=== PATIENT | male | born 1960 | race Caucasian/White ===

== ENCOUNTER → 2016-12-07 | Outpatient (CLI) | payer OTHER ==
[~2016-12-07] MED LIST: ARIP2 PO; EFFE37.5 PO; FOLI1 PO; PROBCAP4 PO; PROT40TA PO; SIMV10 PO; THIA100T PO
[2016-12-07 13:06] LABS: AUTOMATED NEUTROPHIL # 2.5 TH/MM3 (1.8-7.7); BASOPHIL # 0.1 TH/MM3 (0-0.2); BASOPHIL % 1.3 % (0.0-2.0); EOSINOPHIL # 0.2 TH/MM3 (0-0.4); EOSINOPHIL % 4.6 % (0.0-4.0); HEMATOCRIT 44.4 % (39.0-51.0); HEMO FLAGS DIFF FINAL; LYMPH % 31.9 % (9.0-44.0); LYMPHOCYTE # 1.7 TH/MM3 (1.0-4.8); MEAN CORPUSCULAR HEMOGLOBIN 32.7 PG (27.0-34.0); MEAN CORPUSCULAR HGB CONC 34.5 % (32.0-36.0); NEUT % 48.2 % (16.0-70.0); PLATELET COUNT 224 TH/MM3 (150-450); RED BLOOD COUNT 4.68 MIL/MM3 (4.50-5.90); RED CELL DISTRIBUTION WIDTH 13.7 % (11.6-17.2); WHITE BLOOD COUNT 5.3 TH/MM3 (4.0-11.0)
[2016-12-07 13:48] LABS: ALKALINE PHOSPHATASE 93 U/L (45-117); ALT (GPT) 63 U/L (12-78); ANION GAP 6 MEQ/L (5-15); AST (GOT) 75 U/L (15-37); BICARBONATE 29.5 MEQ/L (21.0-32.0); BLOOD UREA NITROGEN 15 MG/DL (7-18); CHLORIDE 105 MEQ/L (98-107); GLOMERULAR FILTRATION RATE 77 ML/MIN (>89); GLUCOSE,FASTING 87 MG/DL (74-99); POTASSIUM 4.8 MEQ/L (3.5-5.1); SODIUM (NA) 140 MEQ/L (136-145); THYROXINE (T4) 6.2 MCG/DL (4.5-12.1); TOTAL BILIRUBIN ADULT 0.4 MG/DL (0.2-1.0)
== END ==
LOC: PLAB 08:16
PROVIDERS: ATTEND Family Medicine
DX: I10 Essential (primary) hypertension (principal); E03.8 Other specified hypothyroidism; Z79.899 Other long term (current) drug therapy
CPT/HCPCS: 80053; 84436; 84443; 84480; 85025

== ENCOUNTER → 2017-04-09 | Outpatient (CLI) | payer OTHER ==
[2017-04-09 09:07] LABS: AUTOMATED NEUTROPHIL # 2.7 TH/MM3 (1.8-7.7); BASOPHIL # 0.1 TH/MM3 (0-0.2); BASOPHIL % 0.9 % (0.0-2.0); EOSINOPHIL # 0.3 TH/MM3 (0-0.4); HEMO FLAGS DIFF FINAL; LYMPH % 40.4 % (9.0-44.0); LYMPHOCYTE # 2.6 TH/MM3 (1.0-4.8); MEAN CELL VOLUME 96.3 FL (80.0-100.0); MEAN CORPUSCULAR HEMOGLOBIN 33.7 PG (27.0-34.0); MONO % 11.8 % (0.0-8.0); NEUT % 42.9 % (16.0-70.0); PLATELET COUNT 246 TH/MM3 (150-450); RED BLOOD COUNT 4.37 MIL/MM3 (4.50-5.90); WHITE BLOOD COUNT 6.3 TH/MM3 (4.0-11.0)
[2017-04-09 09:39] LABS: ANION GAP 7 MEQ/L (5-15); BICARBONATE 26.7 MEQ/L (21.0-32.0); BLOOD UREA NITROGEN 21 MG/DL (7-18); CHLORIDE 103 MEQ/L (98-107); GLOMERULAR FILTRATION RATE 52 ML/MIN (>89); GLUCOSE,FASTING 107 MG/DL (74-99); POTASSIUM 4.2 MEQ/L (3.5-5.1); SODIUM (NA) 137 MEQ/L (136-145)
[2017-04-09 09:41] LABS: ALT (GPT) 26 U/L (12-78); AST (GOT) 30 U/L (15-37)
[2017-04-09 09:43] LABS: ALKALINE PHOSPHATASE 71 U/L (45-117); HDL CHOLESTEROL 64.8 MG/DL (40.0-60.0); TOTAL BILIRUBIN ADULT 0.6 MG/DL (0.2-1.0)
[2017-04-09 09:44] LABS: LDL CHOLESTEROL 132 MG/DL (0-99)
[2017-04-09 12:52] LABS: HEMOGLOBIN A1a 1.3 %; HEMOGLOBIN A1b 0.8 %; HEMOGLOBIN Ao 84.2 %; HEMOGLOBIN F 1.2 %; HEMOGLOBIN LA1C 2.3 %
== END ==
LOC: PLAB 07:12
PROVIDERS: ATTEND Family Medicine
DX: I10 Essential (primary) hypertension (principal); E10.8 Type 1 diabetes mellitus with unspecified complications; E78.2 Mixed hyperlipidemia; Z79.899 Other long term (current) drug therapy
CPT/HCPCS: 80053; 80061; 83036; 85025

== ENCOUNTER 2017-06-05 13:34 | Observation (INO) | payer OTHER ==
[~2017-06-05] VITALS: Ht 182.9 cm; Wt 74.2 kg
[2017-06-05 13:37] VITALS: BP 110/58; PULSE 127; RESP 16; TEMP 98.5; O2SAT 95
[2017-06-05] MEDS ORDERED: SIMV20TA PO (13:58)
[2017-06-05] MEDS ORDERED: LISI-515 PO (13:58)
[2017-06-05] MEDS ORDERED: OMEP20TA PO (13:58)
[2017-06-05] MEDS ORDERED: methylPREDNISolone SOD SUCC 125 MG/2 ML VIAL IV PUSH ONE (14:00)
[2017-06-05] MEDS ORDERED: SODIUM CHLORIDE 0.9% FLUSH 10 ML FLUSH IVF PRN (14:00)
[2017-06-05] MEDS ORDERED: RESP: ALBUTEROL 2.5 MG/IPRATROPIUM 0.5 MG NEB (SCH) NEB ONE (14:00)
--- NOTE | 2017-06-05 14:16 | PD ---
HPI Chief Complaint: Cold / Flu Symptoms Time Seen by Provider: 13:48 Travel History International Travel<30 days: No Contact w/Intl Traveler<30days: No Traveled to known affect area: No History of Present Illness HPI 57-year-old male presents to the emergency room for evaluation of cold and flu symptoms for the past 10 days. Patient states it started off as upper respiratory infection with sore throat, congestion, earache, and slight cough. The upper respiratory symptoms have subsided but he has a persistent, mildly productive cough. Patient reports associated shortness of breath, like he can' t get enough breath in. He has some chest tightness on the right side. He has been taking [id number] Mucinex, DayQuil, and an old prescription for cough syrup with codeine. Patient also reports that he took 4 days worth of a leftover, unknown antibiotic; he believes it may have been erythromycin. He reports feeling chilled and sweaty with past few days but has not actually taken his temperature. Patient denies any cardiac or lung disease. States he may have COPD but has never been formally diagnosed. He smokes 1 pack cigarettes per day. Denies recent immobilization, prolonged travel, unilateral leg swelling, history of cancer, or history of blood clot. Patient has history of hypertension and hyperlipidemia. PFSH Past Medical History Hx Anticoagulant Therapy: Yes (81 MG. ASA) Arthritis: Yes Asthma: No Anxiety: Yes Depression: Yes Heart Rhythm Problems: No Cancer: No Cardiovascular Problems: Yes (CHOL, HTN) High Cholesterol: Yes Chest Pain: No Congestive Heart Failure: No COPD: No Cerebrovascular Accident: No Diabetes: No (states no) Diminished Hearing: No Endocrine: No Gastrointestinal Disorders: Yes GERD: Yes Genitourinary: No Headaches: No Hepatitis: No Hiatal Hernia: No Hypertension: Yes Immune Disorder: No Kidney Stones: No Musculoskeletal: Yes Neurologic: No Psychiatric: Yes Reproductive: No Respiratory: No Immunizations Current: Yes Migraines: No Myocardial Infarction: No Renal Failure: No Seizures: No Sleep Apnea: No Ulcer: No Past Surgical History Abdominal Surgery: Yes (HERNIA REPAIR CHILD) Appendectomy: No Cardiac Surgery: No Cholecystectomy: No Ear Surgery: No Endocrine Surgery: No Eye Surgery: No Genitourinary Surgery: No Gynecologic Surgery: No Insulin Pump: No Joint Replacement: No Oral Surgery: No Pacemaker: No Thoracic Surgery: No Other Surgery: Yes (right inguinal hernia) Social History Alcohol Use: Yes (COUPLE BEERS/BOTTLE OF WINE DAILY. IN REHAB NOW) Tobacco Use: Yes (1.5 PPD) Substance Use: No Allergies-Medications (Allergen,Severity, Reaction): Coded Allergies: No Known Allergies (Verified , 06/05/17) Reported Meds & Prescriptions Reported Meds & Active Scripts Active Reported Omeprazole 20 Mg Tab 20 Mg PO DAILY Lisinopril 20 Mg Tab 20 Mg PO DAILY Simvastatin 20 Mg Tab 30 Mg PO DAILY Review of Systems Except as stated in HPI: all other systems reviewed are Neg Physical Exam Narrative GENERAL: Well developed, well-nourished male in no acute distress. Afebrile. Ambulatory. Resting comfortably in bed. SKIN: Focused skin assessment warm/dry. HEAD: Atraumatic. Normocephalic. EYES: Pupils equal and round. No scleral icterus. No injection or drainage. ENT: No nasal bleeding or discharge. Mucous membranes pink and moist. EARS: Bilateral pinnae and external canals appear within normal limits. Bilateral tympanic membranes without erythema, dullness or perforation. NECK: Trachea midline. No JVD. CARDIOVASCULAR: Tachycardic. Regular rhythm. No murmur appreciated. RESPIRATORY: No accessory muscle use. Breath sounds equal bilaterally. No crackles, rales, wheezes, or rhonchi. Diminished lung sounds bilaterally. NEUROLOGICAL: Awake and alert. No obvious cranial nerve deficits. Motor grossly within normal limits. Normal speech. PSYCHIATRIC: Appropriate mood and affect; insight and judgment normal. Data Data Last Documented VS Vital Signs Date Time Temp Pulse Resp B/P (MAP) Pulse Ox O2 Delivery O2 Flow Rate FiO2 06/05/17 14:50 116 20 98/79 (85) 97 06/05/17 13:37 98.5 Orders Orders Complete Blood Count With Diff (06/05/17 13:57) Comprehensive Metabolic Panel (06/05/17 13:57) Ecg Monitoring (06/05/17 13:57) Iv Access Insert/Monitor (06/05/17 13:57) Oximetry (06/05/17 13:57) Sodium Chloride 0.9% Flush (Ns Flush) (06/05/17 14:00) Albuterol-Ipratropium Neb (Duoneb Neb) (06/05/17 14:00) Methylprednisolone So Succ Inj (Solumedr (06/05/17 14:00) Prothrombin Time / Inr (Pt) (06/05/17 14:20) Act Partial Throm Time (Ptt) (06/05/17 14:20) Sodium Chlor 0.9% 1000 Ml Inj (Ns 1000 M (06/05/17 14:20) Chest, Single Ap (06/05/17 14:20) Influenzae A/B Antigen (06/05/17 14:20) Troponin I (06/05/17 13:57) Electrocardiogram (06/05/17 14:35) B-Type Natriuretic Peptide (06/05/17 14:35) Act Partial Throm Time (Ptt) (06/05/17 14:35) Ckmb (Isoenzyme) Profile (06/05/17 14:36) Troponin I (06/05/17 14:36) Sodium Chlor 0.9% 1000 Ml Inj (Ns 1000 M (06/05/17 14:45) D-Dimer (06/05/17 15:04) Ct Thorax/ Chest Wo Iv Contras (06/05/17 ) CKMB (06/05/17 14:45) CKMB% (06/05/17 14:45) Ventilation & Perfusion Scan (06/05/17 ) Aspirin (Aspirin) (06/05/17 16:00) Admit Order (Ed Use Only) (06/05/17 15:58) Labs Laboratory Tests Test 06/05/17 14:25 06/05/17 14:45 White Blood Count 11.3 TH/MM3 Red Blood Count 5.14 MIL/MM3 Hemoglobin 16.3 GM/DL Hematocrit 48.8 % Mean Corpuscular Volume 95.0 FL Mean Corpuscular Hemoglobin 31.8 PG Mean Corpuscular Hemoglobin Concent 33.5 % Red Cell Distribution Width 11.9 % Platelet Count 299 TH/MM3 Mean Platelet Volume 7.8 FL Neutrophils (%) (Auto) 71.8 % Lymphocytes (%) (Auto) 15.9 % Monocytes (%) (Auto) 10.6 % Eosinophils (%) (Auto) 1.0 % Basophils (%) (Auto) 0.7 % Neutrophils # (Auto) 8.1 TH/MM3 Lymphocytes # (Auto) 1.8 TH/MM3 Monocytes # (Auto) 1.2 TH/MM3 Eosinophils # (Auto) 0.1 TH/MM3 Basophils # (Auto) 0.1 TH/MM3 CBC Comment DIFF FINAL Differential Comment Prothrombin Time 10.8 SEC Prothromb Time International Ratio 1.0 RATIO Activated Partial Thromboplast Time 24.7 SEC 24.2 SEC D-Dimer Quantitative (PE/DVT) 0.62 MG/L FEU Blood Urea Nitrogen 25 MG/DL Creatinine 2.40 MG/DL Random Glucose 116 MG/DL Total Protein 9.1 GM/DL Albumin 3.8 GM/DL Calcium Level 10.6 MG/DL Alkaline Phosphatase 85 U/L Aspartate Amino Transf (AST/SGOT) 34 U/L Alanine Aminotransferase (ALT/SGPT) 37 U/L Total Bilirubin 0.8 MG/DL Sodium Level 133 MEQ/L Potassium Level 4.1 MEQ/L Chloride Level 98 MEQ/L Carbon Dioxide Level 26.4 MEQ/L Anion Gap 9 MEQ/L Estimat Glomerular Filtration Rate 28 ML/MIN Troponin I LESS THAN 0.02 NG/ML LESS THAN 0.02 NG/ML Total Creatine Kinase 106 U/L Creatine Kinase MB 0.6 NG/ML B-Type Natriuretic Peptide 5 PG/ML MDM Medical Decision Making Medical Screen Exam Complete: Yes Emergency Medical Condition: Yes Medical Record Reviewed: Yes Differential Diagnosis Pneumonia, bronchitis, COPD exacerbation, chest pain, PE Narrative Course 57-year-old male presents to the emergency room for evaluation of flulike symptoms for the past 10 days. Patient states symptoms started off as upper respiratory nature and those have subsided but the mildly productive cough has persisted. He has associated shortness of breath, like he can't get enough air in, and right-sided chest tightness. Reports subjective fevers. Patient placed on cardiac telemetry, IV access established, and basic labs obtained. He was given 325 mg aspirin. Physical exam is reassuring. Patient is resting comfortably with no increased work of breathing. Lungs sounds clear but diminished bilaterally. Patient is persistently tachycardic in the 120s and oxygen saturation was initially 92% on room air. After 3 DuoNebs and 125 mg Solu-Medrol, patient's oxygen saturation is 100% on room air. Despite 2 L of fluid, patient is persistently tachycardic. EKG shows sinus tachycardia nonspecific ST changes. Troponin and CK-MB are negative. BNP is 5. Rapid influenza is negative. CBC shows leukocytosis of 11.3. CMP shows evidence of prerenal azotemia with elevated BUN and creatinine. CTA was initially ordered given patient's vital signs but after resulting creatinine, it could not be performed so a d-dimer was added. D-dimer is elevated. VQ scan ordered and pending. My attending physician, Dr. Reyes, who recommends admission for dehydration. I spoke to Dr. Raines, who agrees to accept this patient to her service. Physician Communication Physician Communication I spoke to Dr. Raines who agrees to admit this patient to her service. Diagnosis Primary Impression: Renal insufficiency Additional Impression: Tachycardia Admitting Information Admitting Physician Requests: Observation Condition: Stable Radha Maradiaga Jun 05, 2017 14:16
[2017-06-05] MEDS ORDERED: SODIUM CHLOR 0.9% 1000 ML INJ 1,000 ML IV SCH (14:20)
--- NOTE | 2017-06-05 14:36 | PD ---
Physical Exam Date Seen by Provider: Jun 05, 2017 Data Data Last Documented VS Vital Signs Date Time Temp Pulse Resp B/P (MAP) Pulse Ox O2 Delivery O2 Flow Rate FiO2 06/05/17 14:50 116 20 98/79 (85) 97 06/05/17 13:37 98.5 Orders Orders Complete Blood Count With Diff (06/05/17 13:57) Comprehensive Metabolic Panel (06/05/17 13:57) Ecg Monitoring (06/05/17 13:57) Iv Access Insert/Monitor (06/05/17 13:57) Oximetry (06/05/17 13:57) Sodium Chloride 0.9% Flush (Ns Flush) (06/05/17 14:00) Albuterol-Ipratropium Neb (Duoneb Neb) (06/05/17 14:00) Methylprednisolone So Succ Inj (Solumedr (06/05/17 14:00) Prothrombin Time / Inr (Pt) (06/05/17 14:20) Act Partial Throm Time (Ptt) (06/05/17 14:20) Sodium Chlor 0.9% 1000 Ml Inj (Ns 1000 M (06/05/17 14:20) Chest, Single Ap (06/05/17 14:20) Influenzae A/B Antigen (06/05/17 14:20) Troponin I (06/05/17 13:57) Electrocardiogram (06/05/17 14:35) B-Type Natriuretic Peptide (06/05/17 14:35) Act Partial Throm Time (Ptt) (06/05/17 14:35) Ckmb (Isoenzyme) Profile (06/05/17 14:36) Troponin I (06/05/17 14:36) Sodium Chlor 0.9% 1000 Ml Inj (Ns 1000 M (06/05/17 14:45) D-Dimer (06/05/17 15:04) Ct Thorax/ Chest Wo Iv Contras (06/05/17 ) CKMB (06/05/17 14:45) CKMB% (06/05/17 14:45) Ventilation & Perfusion Scan (06/05/17 ) Aspirin (Aspirin) (06/05/17 16:00) Labs Laboratory Tests Test 06/05/17 14:25 06/05/17 14:45 White Blood Count 11.3 TH/MM3 Red Blood Count 5.14 MIL/MM3 Hemoglobin 16.3 GM/DL Hematocrit 48.8 % Mean Corpuscular Volume 95.0 FL Mean Corpuscular Hemoglobin 31.8 PG Mean Corpuscular Hemoglobin Concent 33.5 % Red Cell Distribution Width 11.9 % Platelet Count 299 TH/MM3 Mean Platelet Volume 7.8 FL Neutrophils (%) (Auto) 71.8 % Lymphocytes (%) (Auto) 15.9 % Monocytes (%) (Auto) 10.6 % Eosinophils (%) (Auto) 1.0 % Basophils (%) (Auto) 0.7 % Neutrophils # (Auto) 8.1 TH/MM3 Lymphocytes # (Auto) 1.8 TH/MM3 Monocytes # (Auto) 1.2 TH/MM3 Eosinophils # (Auto) 0.1 TH/MM3 Basophils # (Auto) 0.1 TH/MM3 CBC Comment DIFF FINAL Differential Comment Prothrombin Time 10.8 SEC Prothromb Time International Ratio 1.0 RATIO Activated Partial Thromboplast Time 24.7 SEC 24.2 SEC D-Dimer Quantitative (PE/DVT) 0.62 MG/L FEU Blood Urea Nitrogen 25 MG/DL Creatinine 2.40 MG/DL Random Glucose 116 MG/DL Total Protein 9.1 GM/DL Albumin 3.8 GM/DL Calcium Level 10.6 MG/DL Alkaline Phosphatase 85 U/L Aspartate Amino Transf (AST/SGOT) 34 U/L Alanine Aminotransferase (ALT/SGPT) 37 U/L Total Bilirubin 0.8 MG/DL Sodium Level 133 MEQ/L Potassium Level 4.1 MEQ/L Chloride Level 98 MEQ/L Carbon Dioxide Level 26.4 MEQ/L Anion Gap 9 MEQ/L Estimat Glomerular Filtration Rate 28 ML/MIN Troponin I LESS THAN 0.02 NG/ML LESS THAN 0.02 NG/ML Total Creatine Kinase 106 U/L Creatine Kinase MB 0.6 NG/ML B-Type Natriuretic Peptide 5 PG/ML [facility] Medical Record Reviewed: Yes Supervised Visit with ADAM: Yes Interpretation(s) Vital Signs Date Time Temp Pulse Resp B/P (MAP) Pulse Ox O2 Delivery O2 Flow Rate FiO2 06/05/17 13:37 98.5 127 16 110/58 (82) 45 Narrative Course Patient is 57-year-old male who presents to emergency room with complaints of cold and cough symptoms for the past 10 days. Patient reports that he began having a URI with sore throat, congestion, slight cough. Reports that he has been having productive cough along with some fevers and chills. Patient reports that symptoms have been persistent, reports that he was at work today and began to have shortness of breath while working and began to have chest pain. Patient reports that he did try to take [id number] medications for symptoms, reports that nothing has helped him for his cough, congestion and chest pain. Patient is a one pack per day smoker for the past 40 years, reports history of hypertension with this. Patient denies any recent travels or trips, denies history of PE or DVT. Patient reports that his was sick with a URI recently as well. Patient is tachycardic on exam with a heart rate in the 120s, patient was placed on a hospital nurse liaison upon arrival to emergency room. An EKG was ordered. CBC, CMP, cardiac enzymes ordered, x-ray of the chest ordered. IV fluids, Solu-Medrol and neb treatments ordered for patient. Vital Signs Date Time Temp Pulse Resp B/P (MAP) Pulse Ox O2 Delivery O2 Flow Rate FiO2 06/05/17 14:50 116 20 98/79 (85) 97 06/05/17 14:49 97 06/05/17 13:37 98.5 127 16 110/58 (75) 95 HR improved after IVF Laboratory Tests Test 06/05/17 14:25 06/05/17 14:45 White Blood Count 11.3 TH/MM3 (4.0-11.0) Red Blood Count 5.14 MIL/MM3 (4.50-5.90) Hemoglobin 16.3 GM/DL (13.0-17.0) Hematocrit 48.8 % (39.0-51.0) Mean Corpuscular Volume 95.0 FL (80.0-100.0) Mean Corpuscular Hemoglobin 31.8 PG (27.0-34.0) Mean Corpuscular Hemoglobin Concent 33.5 % (32.0-36.0) Red Cell Distribution Width 11.9 % (11.6-17.2) Platelet Count 299 TH/MM3 (150-450) Mean Platelet Volume 7.8 FL (7.0-11.0) Neutrophils (%) (Auto) 71.8 % (16.0-70.0) Lymphocytes (%) (Auto) 15.9 % (9.0-44.0) Monocytes (%) (Auto) 10.6 % (0.0-8.0) Eosinophils (%) (Auto) 1.0 % (0.0-4.0) Basophils (%) (Auto) 0.7 % (0.0-2.0) Neutrophils # (Auto) 8.1 TH/MM3 (1.8-7.7) Lymphocytes # (Auto) 1.8 TH/MM3 (1.0-4.8) Monocytes # (Auto) 1.2 TH/MM3 (0-0.9) Eosinophils # (Auto) 0.1 TH/MM3 (0-0.4) Basophils # (Auto) 0.1 TH/MM3 (0-0.2) CBC Comment DIFF FINAL Differential Comment Prothrombin Time 10.8 SEC (9.8-11.6) Prothromb Time International Ratio 1.0 RATIO Activated Partial Thromboplast Time 24.7 SEC (24.3-30.1) 24.2 SEC (24.3-30.1) D-Dimer Quantitative (PE/DVT) 0.62 MG/L FEU (0.00-0.50) Blood Urea Nitrogen 25 MG/DL (7-18) Creatinine 2.40 MG/DL (0.60-1.30) Random Glucose 116 MG/DL (74-106) Total Protein 9.1 GM/DL (6.4-8.2) Albumin 3.8 GM/DL (3.4-5.0) Calcium Level 10.6 MG/DL (8.5-10.1) Alkaline Phosphatase 85 U/L (45-117) Aspartate Amino Transf (AST/SGOT) 34 U/L (15-37) Alanine Aminotransferase (ALT/SGPT) 37 U/L (12-78) Total Bilirubin 0.8 MG/DL (0.2-1.0) Sodium Level 133 MEQ/L (136-145) Potassium Level 4.1 MEQ/L (3.5-5.1) Chloride Level 98 MEQ/L (98-107) Carbon Dioxide Level 26.4 MEQ/L (21.0-32.0) Anion Gap 9 MEQ/L (5-15) Estimat Glomerular Filtration Rate 28 ML/MIN (>89) Troponin I LESS THAN 0.02 NG/ML LESS THAN 0.02 NG/ML Total Creatine Kinase 106 U/L (39-308) Creatine Kinase MB 0.6 NG/ML (0.5-3.6) B-Type Natriuretic Peptide 5 PG/ML (0-100) Labs reviewed, cr 2.4 which is double baseline. d.dimer elevated. VQ scan ordered to Rule out pe. Patient will require admission to the hospital for renal failure as well as for VQ scan to rule out PE. VQ scan will be performed in a few hours as per VQ, this will be relayed to admitting hospitalist for follow up Diagnosis Primary Impression: Renal insufficiency Additional Impressions: Chest pain Tachycardia SOB (shortness of breath) Admitting Information Admitting Physician Requests: Observation Disposition: 01 DISCHARGE HOME Condition: Stable Racheal Reyes DO Jun 05, 2017 14:36
[2017-06-05 14:41] LABS: AUTOMATED NEUTROPHIL # 8.1 TH/MM3 (1.8-7.7); BASOPHIL # 0.1 TH/MM3 (0-0.2); BASOPHIL % 0.7 % (0.0-2.0); EOSINOPHIL # 0.1 TH/MM3 (0-0.4); HEMATOCRIT 48.8 % (39.0-51.0); HEMO FLAGS DIFF FINAL; LYMPH % 15.9 % (9.0-44.0); LYMPHOCYTE # 1.8 TH/MM3 (1.0-4.8); MEAN CORPUSCULAR HEMOGLOBIN 31.8 PG (27.0-34.0); MEAN CORPUSCULAR HGB CONC 33.5 % (32.0-36.0); MONO % 10.6 % (0.0-8.0); NEUT % 71.8 % (16.0-70.0); PLATELET COUNT 299 TH/MM3 (150-450); RED BLOOD COUNT 5.14 MIL/MM3 (4.50-5.90); RED CELL DISTRIBUTION WIDTH 11.9 % (11.6-17.2); WHITE BLOOD COUNT 11.3 TH/MM3 (4.0-11.0)
[2017-06-05] MEDS ORDERED: SODIUM CHLOR 0.9% 1000 ML INJ 1,000 ML IV ONE (14:45)
[2017-06-05 14:49] VITALS: O2SAT 97
[2017-06-05 14:50] VITALS: BP 98/79; PULSE 116; RESP 20; O2SAT 97
[2017-06-05 14:54] LABS: CHLORIDE 98 MEQ/L (98-107); POTASSIUM 4.1 MEQ/L (3.5-5.1); SODIUM (NA) 133 MEQ/L (136-145)
--- NOTE | 2017-06-05 14:54 | RADRPT ---
EXAM DATE/TIME: 06/05/2017 14:31 [facility] COMPARISON: CHEST SINGLE AP, February 21, 2016, 18:47. INDICATIONS : Short of breath MEDICAL HISTORY : None. SURGICAL HISTORY : None. ENCOUNTER: Initial ACUITY: 1 week PAIN SCORE: 0/10 LOCATION: Bilateral chest FINDINGS: Minimal bibasilar parenchymal changes are noted. Heart and pulmonary vascularity are normal. Portion s of the bony skeleton visualized are unremarkable. CONCLUSION: Minimal bibasilar parenchymal changes. Josesito Patel MD FACR on June 05, 2017 at 14:51 Board Certified Radiologist. This report was verified electronically.
[2017-06-05 14:57] LABS: ANION GAP 9 MEQ/L (5-15); BICARBONATE 26.4 MEQ/L (21.0-32.0); BLOOD UREA NITROGEN 25 MG/DL (7-18)
[2017-06-05 15:00] LABS: ALT (GPT) 37 U/L (12-78); AST (GOT) 34 U/L (15-37); GLOMERULAR FILTRATION RATE 28 ML/MIN (>89)
[2017-06-05 15:02] LABS: TOTAL BILIRUBIN ADULT 0.8 MG/DL (0.2-1.0)
[2017-06-05 15:03] LABS: ALKALINE PHOSPHATASE 85 U/L (45-117)
[2017-06-05 15:04] LABS: APTT (PATIENT) 24.7 SEC (24.3-30.1); PROTHROMBIN TIME - PATIENT 10.8 SEC (9.8-11.6)
[2017-06-05 15:07] LABS: APTT (PATIENT) 24.2 SEC (24.3-30.1)
[2017-06-05 15:14] LABS: CREATINE KINASE 106 U/L (39-308)
[2017-06-05 15:26] LABS: CKMB 0.6 NG/ML (0.5-3.6)
--- NOTE | 2017-06-05 15:26 | RADRPT ---
EXAM DATE/TIME: 06/05/2017 15:08 [facility] COMPARISON: CT BRAIN W/O CONTRAST, October 23, 2015, 12:08. INDICATIONS : Short of breath. Cough. Cold and flu symptoms x 10 days. RADIATION DOSE: CTDIvol (mGy) MEDICAL HISTORY : Hypertension. Gastroesophageal reflux disease. SURGICAL HISTORY : Hernia repair. ENCOUNTER: Initial ACUITY: 1 week PAIN SCALE: 0/10 LOCATION: chest TECHNIQUE: Volumetric scanning of the chest was performed. Using automated exposure control and adjustment of t he mA and/or kV according to patient size, radiation dose was kept as low as reasonably achievable to obtain optimal diagnostic quality images. DICOM format image data is available electronically for r eview and comparison. Follow-up recommendations for detected pulmonary nodules are based at a minimum on nodule size and pa tient risk factors according to Fleischner Society Guidelines. FINDINGS: There are COPD changes with emphysematous blebs in the upper lobes. The lungs are clear. No suspiciou s masses seen. There is no pleural effusion. The heart is normal in size. There is atherosclerotic plaquing of the coronary arteries. No pericardi al or pleural effusion is present. There are some scattered mediastinal nodes. The largest node identified is in the middle mediastinum in measures 1.9 x 1.0 cm. These are nonspecific. They are mildly enlarged by CT size criteria. Follow up CT imaging of the thorax in 6 months to document stability would be warranted. The limited portions of upper abdomen visualized are unremarkable. The visualized bony structures demonstrate degenerative changes but are otherwise intact. CONCLUSION: 1. COPD changes. 2. There are some small mediastinal nodes nonspecific in appearance by CT. Followup examination in 6 months to document stability would be of benefit. 3. No pneumonia identified. Joselito Patel MD on June 05, 2017 at 15:23 Board Certified Radiologist. This report was verified electronically.
[2017-06-05] MEDS ORDERED: ASPIRIN 325 MG TAB PO ONE (16:00)
[2017-06-05] MEDS ORDERED: SODIUM CHLORIDE 0.9% FLUSH 10 ML FLUSH IV FLUSH PRN (16:45)
[2017-06-05] MEDS ORDERED: NALOXONE HCL 0.4 MG/ML AMP IV PUSH PRN (16:45)
[2017-06-05] MEDS ORDERED: ONDANSETRON HCL 4 MG/2 ML VIAL IVP PRN (17:00)
[2017-06-05] MEDS: SODIUM CHLOR 0.9% 1000 ML INJ 1,000 ML IV SCH (17:00)
[2017-06-05] MEDS ORDERED: MAGNESIUM HYDROXIDE SUSP 30 ML CUP PO PRN (17:00)
[2017-06-05] MEDS ORDERED: BISACODYL 10 MG SUPP RECTAL PRN (17:00)
[2017-06-05] MEDS ORDERED: ACETAMINOPHEN 325 MG TAB PO PRN (17:00)
[2017-06-05] MEDS ORDERED: LACTULOSE SYRUP 20 GM/30 ML CUP PO PRN (17:00)
[2017-06-05] MEDS ORDERED: SENNOSIDES 8.6 MG TAB PO PRN (17:00)
[2017-06-05] MEDS ORDERED: hydrALAZINE HCL 10 MG TAB PO PRN (17:00)
--- NOTE | 2017-06-05 17:22 | RADRPT ---
EXAM DATE/TIME: 06/05/2017 16:53 [facility] COMPARISON: CT THORAX W/O CONTRAST, June 05, 2017, 15:08. INDICATIONS : Short of breath. DOSE: 8.1 mCi Tc99m MAA IV 0.7 mCi Tc99m DTPA aerosol MEDICAL HISTORY : Hypertension. Asthma. SURGICAL HISTORY : Inguinal hernia repair. Left arm surgery. ENCOUNTER: Initial ACUITY: 1 day PAIN SCALE: 3/10 LOCATION: Bilateral chest TECHNIQUE: Following five minutes of tidal breathing of DTPA aerosol, planar images of the lungs were performed in eight projections. The patient was then injected with MAA, and eight-view perfusion scan was perf ormed. FINDINGS: There is minimal central airway tracer deposition. Small single matched perfusion defect is seen in the periphery of the left and right lung. Bullous changes are seen on CT. Perfusion is better than ventilation. CONCLUSION: Low probability for pulmonary embolism.. Josesito Patel MD FACR on June 05, 2017 at 17:19 Board Certified Radiologist. This report was verified electronically.
--- NOTE | 2017-06-05 19:45 | HHI.HP ---
HPI Service [facility] Primary Care Physician Red Trinidad, DO Admission Diagnosis Renal insuffiency, chest pain, tachycardia, sob Diagnoses: Travel History International Travel<30 Days: No Contact w/Intl Traveler <30 Da: No Traveled to Known Affected Are: No History of Present Illness 57-year-old male with PMH of HTN, HLD, GERD presents to the emergency room for evaluation of cold and flu symptoms for the past 10 days. Sick contacts: had recent URI. Patient states it started off as upper respiratory infection with sore throat, congestion, earache, and slight cough. The upper respiratory symptoms have subsided but he has a persistent, mildly productive cough. Patient reports associated shortness of breath, like he can't get enough breath in. He has some chest tightness on the right side. He has been taking over-the -counter Mucinex, DayQuil, and an old prescription for cough syrup with codeine. Patient also reports that he took 4 days worth of a leftover, unknown antibiotic; he believes it may have been erythromycin. He reports feeling chilled and sweaty with past few days but has not actually taken his temperature. Patient denies any cardiac or lung disease. States he may have COPD but has never been formally diagnosed. He smokes 1 pack cigarettes per day. Denies recent immobilization, prolonged travel, unilateral leg swelling, history of cancer, or history of blood clot. Patient has history of hypertension and hyperlipidemia. Patient denies chest pain. Review of Systems Except as stated in HPI: all other systems reviewed are Neg Past Family Social History Past Medical History Arthritis, anxiety/depression, hypertension, hypercholesterolemia, GERD, emphysema and EtOH abuse/dependence Past Surgical History Hernia repair as a child, left fractured forearm repaired with hardware Reported Medications Reported Meds & Active Scripts Active Reported Omeprazole 20 Mg Tab 20 Mg PO DAILY Lisinopril 20 Mg Tab 20 Mg PO DAILY Simvastatin 20 Mg Tab 30 Mg PO DAILY Allergies: Coded Allergies: No Known Allergies (Verified , 06/05/17) Family History Mother is 83 years old alive and healthy Father at 66 6 secondary to complications of diabetes mellitus Social History Sober for 5 days, had rehabilitation 6/detox program Used to drink a couple of bottles of wine and approximately 6 alcoholic drinks per day. Now cut down to 2 beers daily. Did not have any drink in 5 days. no withdrawals. Quit smoking cigarettes 5 years ago used to smoking a pack and half a day Denies illicit drug use Physical Exam Vital Signs Vital Signs Date Time Temp Pulse Resp B/P (MAP) Pulse Ox O2 Delivery O2 Flow Rate FiO2 06/05/17 16:45 06/05/17 14:50 116 20 98/79 (85) 97 06/05/17 14:49 97 06/05/17 13:37 98.5 127 16 110/58 (75) 95 Physical Exam GENERAL: This is a well-nourished, well-developed patient, in no apparent distress. SKIN: No rashes, ecchymoses or lesions. Cool and dry. HEAD: Atraumatic. Normocephalic. No temporal or scalp tenderness. EYES: Pupils equal round and reactive. Extraocular motions intact. No scleral icterus. No injection or drainage. ENT: Nose without bleeding, purulent drainage or septal hematoma. Throat without erythema, tonsillar hypertrophy or exudate. Uvula midline. Airway patent. NECK: Trachea midline. No JVD or lymphadenopathy. Supple, nontender, no meningeal signs. CARDIOVASCULAR: Regular rate and rhythm without murmurs, gallops, or rubs. RESPIRATORY: Clear to auscultation. Breath sounds equal bilaterally. No wheezes , rales, or rhonchi. GASTROINTESTINAL: Abdomen soft, non-tender, nondistended. No hepato-splenomegaly , or palpable masses. No guarding. MUSCULOSKELETAL: Extremities without clubbing, cyanosis, or edema. No joint tenderness, effusion, or edema noted. No calf tenderness. Negative Homans sign bilaterally. NEUROLOGICAL: Awake and alert. Cranial nerves II through XII intact. Motor and sensory grossly within normal limits. Five out of 5 muscle strength in all muscle groups. Normal speech. Laboratory Laboratory Tests Test 06/05/17 14:25 06/05/17 14:45 White Blood Count 11.3 Red Blood Count 5.14 Hemoglobin 16.3 Hematocrit 48.8 Mean Corpuscular Volume 95.0 Mean Corpuscular Hemoglobin 31.8 Mean Corpuscular Hemoglobin Concent 33.5 Red Cell Distribution Width 11.9 Platelet Count 299 Mean Platelet Volume 7.8 Neutrophils (%) (Auto) 71.8 Lymphocytes (%) (Auto) 15.9 Monocytes (%) (Auto) 10.6 Eosinophils (%) (Auto) 1.0 Basophils (%) (Auto) 0.7 Neutrophils # (Auto) 8.1 Lymphocytes # (Auto) 1.8 Monocytes # (Auto) 1.2 Eosinophils # (Auto) 0.1 Basophils # (Auto) 0.1 CBC Comment DIFF FINAL Differential Comment Prothrombin Time 10.8 Prothromb Time International Ratio 1.0 Activated Partial Thromboplast Time 24.7 24.2 D-Dimer Quantitative (PE/DVT) 0.62 Blood Urea Nitrogen 25 Creatinine 2.40 Random Glucose 116 Total Protein 9.1 Albumin 3.8 Calcium Level 10.6 Alkaline Phosphatase 85 Aspartate Amino Transf (AST/SGOT) 34 Alanine Aminotransferase (ALT/SGPT) 37 Total Bilirubin 0.8 Sodium Level 133 Potassium Level 4.1 Chloride Level 98 Carbon Dioxide Level 26.4 Anion Gap 9 Estimat Glomerular Filtration Rate 28 Troponin I LESS THAN 0.02 LESS THAN 0.02 Total Creatine Kinase 106 Creatine Kinase MB 0.6 B-Type Natriuretic Peptide 5 Date/Time Source Procedure Growth Status 06/05/17 14:25 Nasal Aspirate Influenza Types A,B Antigen (JOSE) - Final NEGATIVE FOR FLU A AND B ANTIGEN.... Complete Result Diagram: 06/05/17 1425 06/05/17 1425 Imaging Last Impressions Chest X-Ray 06/05/17 1420 Signed Impressions: Service Date/Time: Monday, June 05, 2017 14:31 - CONCLUSION: Minimal bibasilar parenchymal changes. Josesito Patel MD FACR Lung Scan-V Nuclear Medicine 06/05/17 0000 Signed Impressions: Service Date/Time: Monday, June 05, 2017 16:53 - CONCLUSION: Low probability for pulmonary embolism.. Josesito Patel MD FACR Chest CT 06/05/17 0000 Signed Impressions: Service Date/Time: Monday, June 05, 2017 15:08 - CONCLUSION: 1. COPD changes. 2. There are some small mediastinal nodes nonspecific in appearance by CT. Followup examination in 6 months to document stability would be of benefit. 3. No pneumonia identified. MD Lynda Carrington VTE Risk Assessment Caprini VTE Risk Assessment: Mod/High Risk (score >= 2) Caprini Risk Assessment Model Point Value = 1 Point Value = 2 Point Value = 3 Point Value = 5 Age 41-60 Minor surgery BMI > 25 kg/m2 Swollen legs Varicose veins or History of unexplained or recurrent spontaneous Oral contraceptives or hormone replacement Sepsis (< 1 month) Serious lung disease, including pneumonia (< 1 month) Abnormal pulmonary function Acute myocardial infarction Congestive heart failure (< 1 month) History of inflammatory bowel disease Medical patient at bed rest Age 61-74 Arthroscopic surgery Major open surgery (> 45 min) Laparoscopic surgery (> 45 min) Malignancy Confined to bed (> 72 hours) Immobilizing plaster cast Central venous access Age >= 75 History of VTE Family history of VTE Factor V Leiden Prothrombin [id number] Lupus anticoagulant Anticardiolipin antibodies Elevated serum homocysteine Heparin-induced thrombocytopenia Other congenital or acquired thrombophilia Stroke (< 1 month) Elective arthroplasty Hip, pelvis, or leg fracture Acute spinal cord injury (< 1 month) Prophylaxis Regimen Total Risk Factor Score Risk Level Prophylaxis Regimen 0-1 Low Early ambulation 2 Moderate Order ONE of the following: *Sequential Compression Device (SCD) *Heparin 5000 units SQ BID 3-4 Higher Order ONE of the following medications: *Heparin 5000 units SQ TID *Enoxaparin/Lovenox 40 mg SQ daily (WT < 150 kg, CrCl > 30 mL/min) *Enoxaparin/Lovenox 30 mg SQ daily (WT < 150 kg, CrCl > 10-29 mL/min) *Enoxaparin/Lovenox 30 mg SQ BID (WT < 150 kg, CrCl > 30 mL/min) AND/OR *Sequential Compression Device (SCD) 5 or more Highest Order ONE of the following medications: *Heparin 5000 units SQ TID (Preferred with Epidurals) *Enoxaparin/Lovenox 40 mg SQ daily (WT < 150 kg, CrCl > 30 mL/min) *Enoxaparin/Lovenox 30 mg SQ daily (WT < 150 kg, CrCl > 10-29 mL/min) *Enoxaparin/Lovenox 30 mg SQ BID (WT < 150 kg, CrCl > 30 mL/min) AND *Sequential Compression Device (SCD) Assessment and Plan Assessment and Plan Sinus tachycardia 2/2 Dehydration. Patient also was noted with SOB, CXR normal. D-dimer was noted elevated and concern for PE. Due to elevated Cr CTA could not be done and instead V/Q scan was ordered. V/Q scan reviewed , with low probability for PE GELY on CKD. Cr not at baseline. Monitor closely kidney function Hold lisinopril at this time Start IVF Avoid nephrotoxic agents Will do kidney US Elevated D Dimer. SOB, poss viral upper respiratory infection. Symptomatic treatment. Encourage hydration, IVF, duonebs as need. CT chest neg. V/Q scan no PE Other chronic medical problems stable at this time, restart home meds except as above. SCDs, lovenox per renal dose for DVT prophylaxis Discussed Condition With patient. nurse, ED physician Suri Raines MD Jun 05, 2017 19:45
[2017-06-05 20:00] VITALS: BP 133/76; PULSE 92; RESP 20; TEMP 98.7; O2SAT 98
[2017-06-05] MEDS ORDERED: ENOXAPARIN SODIUM 30 MG/0.3 ML SYRINGE SQ SCH (20:00)
[2017-06-05] MEDS ORDERED: RESP: ALBUTEROL 2.5 MG/IPRATROPIUM 0.5 MG NEB (PRN) NEB (20:00)
[2017-06-05] MEDS: SODIUM CHLORIDE 0.9% FLUSH 10 ML FLUSH IV FLUSH SCH (21:00)
[2017-06-05] MEDS ORDERED: PANTOPRAZOLE SOD 40 MG DELAYED RELEASE TAB PO ONE (21:00)
[2017-06-05] MEDS: DOCUSATE SODIUM 50 MG/SENNA 8.6 MG TAB PO SCH (21:13)
[2017-06-05 22:16] VITALS: O2SAT 96
[2017-06-06] VITALS: BP 92/66; PULSE 85; RESP 20; TEMP 96.7; O2SAT 99
[2017-06-06] MEDS ORDERED: PANTOPRAZOLE SODIUM 40 MG VIAL IV PUSH ONE (00:15)
[2017-06-06 04:00] VITALS: BP 103/68; PULSE 76; RESP 20; TEMP 96.9; O2SAT 97
[2017-06-06] MEDS: SODIUM CHLOR 0.9% 1000 ML INJ 1,000 ML IV SCH (05:44)
[2017-06-06] MEDS ORDERED: LISI20TA PO (07:47)
--- NOTE | 2017-06-06 07:57 | EKG ---
Date Performed: 06/05/2017 Time Performed: 14:55:37 PTAGE: 57 years EKG: SINUS TACHYCARDIA WITH SHORT GA INTERVAL NONSPECIFIC ST & T-WAVE ABNORMALITY ABNORMAL RHYTH M ECG Since PREVIOUS TRACING , now tachycardic PREVIOUS TRACIN02/21/2016 19.07 DOCTOR: Tricia Woodson Interpretating Date/Time 06/06/2017 07:55:26
[2017-06-06 08:00] VITALS: BP 120/69; PULSE 55; RESP 19; TEMP 97.3; O2SAT 97
[2017-06-06 08:43] LABS: AUTOMATED NEUTROPHIL # 9.4 TH/MM3 (1.8-7.7); BASOPHIL % 0.2 % (0.0-2.0); EOSINOPHIL % 0.1 % (0.0-4.0); HEMATOCRIT 38.6 % (39.0-51.0); LYMPH % 9.5 % (9.0-44.0); MEAN CELL VOLUME 95.7 FL (80.0-100.0); MEAN CORPUSCULAR HEMOGLOBIN 33.2 PG (27.0-34.0); MEAN CORPUSCULAR HGB CONC 34.7 % (32.0-36.0); MONO % 3.9 % (0.0-8.0); NEUT % 86.3 % (16.0-70.0); PLATELET COUNT 221 TH/MM3 (150-450); RED BLOOD COUNT 4.04 MIL/MM3 (4.50-5.90); WHITE BLOOD COUNT 10.8 TH/MM3 (4.0-11.0)
[2017-06-06 08:54] LABS: HEMO FLAGS DIFF FINAL
[2017-06-06] MEDS ORDERED: PRAVASTATIN SOD 20 MG TAB PO SCH (09:00)
[2017-06-06] MEDS ORDERED: PANTOPRAZOLE SOD 20 MG DELAYED RELEASE TAB PO SCH (09:00)
[2017-06-06 09:06] LABS: BICARBONATE 21.8 MEQ/L (21.0-32.0); POTASSIUM 4.1 MEQ/L (3.5-5.1)
--- NOTE | 2017-06-06 09:17 | HHI.PR ---
Subjective Remarks In the chair, appears in nad. Feels much better. No sob or wheezing. No n/v/d/ c. Epigastric pain is improved. No chest pain. No abdominal pain. Spoke with patient , patient Cr baseline is 1.5. Objective Vitals Vital Signs Date Time Temp Pulse Resp B/P (MAP) Pulse Ox O2 Delivery O2 Flow Rate FiO2 06/06/17 04:00 96.9 76 20 103/68 (80) 97 06/06/17 00:00 96.7 85 20 92/66 (75) 99 06/05/17 22:16 96 21 06/05/17 20:00 98.7 92 20 133/76 (95) 98 06/05/17 16:45 06/05/17 14:50 116 20 98/79 (85) 97 06/05/17 14:49 97 06/05/17 13:37 98.5 127 16 110/58 (75) 95 I/O 06/05/17 06/05/17 06/05/17 06/06/17 06/06/17 06/06/17 07:00 15:00 23:00 07:00 15:00 23:00 Intake Total 841 ml Balance 841 ml Intake IV Total 841 ml Result Diagram: 06/06/17 0750 06/06/17 0750 Imaging Last Impressions Chest X-Ray 06/05/17 1420 Signed Impressions: Service Date/Time: Monday, June 05, 2017 14:31 - CONCLUSION: Minimal bibasilar parenchymal changes. Josesito Patel MD FACR Lung Scan-V Nuclear Medicine 06/05/17 0000 Signed Impressions: Service Date/Time: Monday, June 05, 2017 16:53 - CONCLUSION: Low probability for pulmonary embolism.. Josesito Patel MD FACR Chest CT 06/05/17 0000 Signed Impressions: Service Date/Time: Monday, June 05, 2017 15:08 - CONCLUSION: 1. COPD changes. 2. There are some small mediastinal nodes nonspecific in appearance by CT. Followup examination in 6 months to document stability would be of benefit. 3. No pneumonia identified. Joselito Patel MD Objective Remarks GENERAL: This is a well-nourished, well-developed patient, in no apparent distress. CARDIOVASCULAR: Regular rate and rhythm without murmurs, gallops, or rubs. RESPIRATORY: Clear to auscultation. Breath sounds equal bilaterally. No wheezes , rales, or rhonchi. GASTROINTESTINAL: Abdomen soft, non-tender, nondistended. No hepato-splenomegaly , or palpable masses. No guarding. MUSCULOSKELETAL: Extremities without clubbing, cyanosis, or edema. No joint tenderness, effusion, or edema noted. No calf tenderness. Negative Homans sign bilaterally. NEUROLOGICAL: Awake and alert. Cranial nerves II through XII intact. Motor and sensory grossly within normal limits. Five out of 5 muscle strength in all muscle groups. Normal speech. A/P Assessment and Plan Sinus tachycardia 2/2 Dehydration. Patient also was noted with SOB, CXR normal. D-dimer was noted elevated and concern for PE. Due to elevated Cr CTA could not be done and instead V/Q scan was ordered. V/Q scan reviewed , with low probability for PE GELY on CKD. Cr not at baseline on admission. Monitor closely kidney function. Kidney function is back to his baseline at discharge Hold lisinopril/HCTZ at this time. Will start amlodipine Received IVF, encourage PO hydration Avoid nephrotoxic agents Kidney US reviewed and findings discussed with the patient and family. Patient with bladder wall thickening. Discussed with the patient and his patient needs to follow up as OP with urology. Elevated D Dimer. SOB, poss viral upper respiratory infection. Symptomatic treatment. Encourage hydration, IVF, duonebs as need. CT chest neg. V/Q scan no PE. To follow up as OP with PCP and pulm. Advice to quit smoking. GERD, increase omeprazole. discussed diet modifications, quit tobacco use, EtOH use, no spicy foods, coffee Tobacco use: counselled, start nicotine patch. Currently 1 PPD EtOH use: counselled. Other chronic medical problems stable at this time, restart home meds except as above. SCDs, lovenox per renal dose for DVT prophylaxis Discussed Condition With patient. nurse, family Mrs Kowalski Discharge Planning Discharge home inn stable condition to follow up as OP with PCP and consultants Diet healthy heart and renal diet. GERD diet discussed with patient Activity ad marco as tolerated Meds per med reconciliation Suri Raines MD Jun 06, 2017 09:17
--- NOTE | 2017-06-06 09:18 | HHI.DCPOC ---
Discharge Care Plan Goals to Promote Your Health * To prevent worsening of your condition and complications * To maintain your health at the optimal level Directions to Meet Your Goals Take your medications as prescribed Follow your dietary instruction Follow activity as directed Keep your appointments as scheduled Take your immunizations and boosters as scheduled If your symptoms worsen call your PCP, if no PCP go to Urgent Care Center or Emergency Room Smoking is Dangerous to Your Health. Avoid second hand smoke Call the 24-hour hour crisis hotline for domestic abuse at Suri Raines MD Jun 06, 2017 09:18
[2017-06-06] MEDS: DOCUSATE SODIUM 50 MG/SENNA 8.6 MG TAB PO SCH (09:19)
[2017-06-06] MEDS: SODIUM CHLORIDE 0.9% FLUSH 10 ML FLUSH IV FLUSH SCH (09:20)
[2017-06-06] MEDS ORDERED: PNEUMOCOCCAL POLYVALENT INJ 25 MCG/0.5 ML SYR IM ONE (10:00)
--- NOTE | 2017-06-06 11:20 | RADRPT ---
EXAM DATE/TIME: 06/06/2017 09:32 [facility] COMPARISON: No previous studies available for comparison. INDICATIONS : Increased lab values. MEDICAL HISTORY : Hypertension. Hypercholesterolemia. Gastroesophageal reflux disease. Inflammatory bowel disease. Art hritis. Sciatica. Depression. Anxiety. SURGICAL HISTORY : Hernia repair. Left arm surgery. ENCOUNTER: Initial ACUITY: 1 day PAIN SCORE: 3/10 LOCATION: Bilateral flank MEASUREMENTS: RIGHT KIDNEY: 9.7 x 5.4 x 5.4 cm LEFT KIDNEY: 9.4 x 6.0 x 5.6 cm FINDINGS: RIGHT KIDNEY: Renal cortex is normal in thickness and echotexture. No hydronephrosis, stone, or mass. LEFT KIDNEY: Renal cortex is normal in thickness and echotexture. No hydronephrosis, stone, or mass. BLADDER: Mildly diffusely thickened wall. CONCLUSION: Kidneys within normal limits. Mild diffuse urinary bladder wall thickening. Trevor Conner MD on June 06, 2017 at 11:18 Board Certified Radiologist. This report was verified electronically.
[2017-06-06] MEDS ORDERED: NICO21DI6 T-DERMAL (13:11)
[2017-06-06] MEDS ORDERED: VENTAER INH (13:11)
[2017-06-06] MEDS ORDERED: OMEP40CA2 PO (13:11)
[2017-06-06] MEDS ORDERED: AMLO5TAB2 PO (13:11)
== END 2017-06-06 15:22 | disposition home or self-care (01) ==
LOC: PHED 13:34 → PHEDA 15:58 → PH5A 17:21
PROVIDERS: ADMIT Hospitalist; ATTEND Hospitalist
DX: R06.02 Shortness of breath (principal); R91.8 Other nonspecific abnormal finding of lung field; E86.0 Dehydration; R00.0 Tachycardia, unspecified; R10.13 Epigastric pain; R07.89 Other chest pain; N28.9 Disorder of kidney and ureter, unspecified; I10 Essential (primary) hypertension; E78.00 Pure hypercholesterolemia, unspecified; K21.9 Gastro-esophageal reflux disease without esophagitis; F17.210 Nicotine dependence, cigarettes, uncomplicated; Z79.82 Long term (current) use of aspirin
CPT/HCPCS: 71010; 71250; 76775; 78582; 80048; 80053; 82550; 82552; 83880; 84484; 85025; 85379; 85610; 85730; 87804; 93005; 94664; 96361; 96372; 96374; 96375; 97162; 99285; A9540; A9567; C9113; G0378; G8987; G8988; J1650; J2930; J7030

== ENCOUNTER → 2017-06-25 | Outpatient (CLI) | payer OTHER ==
[~2017-06-25] MED LIST changes: +AMLO5TAB2 PO; -ARIP2 PO; -EFFE37.5 PO; -FOLI1 PO; +NICO21DI6 T-DERMAL; +OMEP40CA2 PO; -PROBCAP4 PO; -PROT40TA PO; -SIMV10 PO; +SIMV20TA PO; -THIA100T PO; +VENTAER INH
[2017-06-25 13:03] LABS: AUTOMATED NEUTROPHIL # 2.6 TH/MM3 (1.8-7.7); BASOPHIL # 0.1 TH/MM3 (0-0.2); BASOPHIL % 0.9 % (0.0-2.0); EOSINOPHIL # 0.4 TH/MM3 (0-0.4); HEMATOCRIT 42.1 % (39.0-51.0); HEMO FLAGS DIFF FINAL; LYMPH % 39.2 % (9.0-44.0); LYMPHOCYTE # 2.5 TH/MM3 (1.0-4.8); MEAN CELL VOLUME 95.1 FL (80.0-100.0); MEAN CORPUSCULAR HEMOGLOBIN 32.7 PG (27.0-34.0); MEAN CORPUSCULAR HGB CONC 34.4 % (32.0-36.0); MONO % 13.1 % (0.0-8.0); NEUT % 40.8 % (16.0-70.0); PLATELET COUNT 371 TH/MM3 (150-450); RED BLOOD COUNT 4.43 MIL/MM3 (4.50-5.90); RED CELL DISTRIBUTION WIDTH 12.8 % (11.6-17.2); WHITE BLOOD COUNT 6.4 TH/MM3 (4.0-11.0)
[2017-06-25 13:13] LABS: ANION GAP 7 MEQ/L (5-15); AST (GOT) 21 U/L (15-37); BICARBONATE 27.8 MEQ/L (21.0-32.0); BLOOD UREA NITROGEN 17 MG/DL (7-18); CHLORIDE 104 MEQ/L (98-107); GLOMERULAR FILTRATION RATE 78 ML/MIN (>89); GLUCOSE,FASTING 79 MG/DL (74-99); POTASSIUM 4.1 MEQ/L (3.5-5.1); SODIUM (NA) 139 MEQ/L (136-145)
[2017-06-25 13:15] LABS: ALT (GPT) 23 U/L (12-78)
[2017-06-25 13:25] LABS: ALKALINE PHOSPHATASE 79 U/L (45-117); TOTAL BILIRUBIN ADULT 0.3 MG/DL (0.2-1.0)
== END ==
LOC: PLAB 07:47
PROVIDERS: ATTEND Student in an Organized Health Care Education/Training Program
DX: K29.20 Alcoholic gastritis without bleeding (principal); E86.0 Dehydration; Z12.5 Encounter for screening for malignant neoplasm of prostate; Z13.29 Encounter for screening for other suspected endocrine disorder
CPT/HCPCS: 80053; 83690; 84153; 84443; 85025

== ENCOUNTER 2017-08-21 17:26 | Emergency (ER) | payer OTHER ==
[~2017-08-21] VITALS: Ht 182.9 cm; Wt 76.0 kg
[2017-08-21 17:33] VITALS: BP 153/80; PULSE 66; RESP 16; TEMP 98.1; O2SAT 97
[2017-08-21] MEDS ORDERED: ATOR20TA15 PO (17:42)
[2017-08-21] MEDS ORDERED: METO50TA PO (17:42)
[2017-08-21] MEDS ORDERED: PRIL20TA2 PO (17:42)
--- NOTE | 2017-08-21 18:01 | PD ---
HPI Chief Complaint: Skin Problem Time Seen by Provider: 17:41 Travel History International Travel<30 days: No Contact w/Intl Traveler<30days: No Traveled to known affect area: No History of Present Illness HPI 57-year-old male here for evaluation of left anterior knee pain and swelling after eating stuck by a donya thorn 6 days ago. Patient reports that the pain feels like a toothache, currently 6 out of 10, intermittently worse at times, worse with movement, palpation, and ambulation. He denies fevers or chills. He is unsure if part of the thorn is still in his left anterior knee. PFSH Past Medical History Hx Anticoagulant Therapy: Yes (81 MG. ASA) Arthritis: Yes Asthma: No Anxiety: Yes Depression: Yes Heart Rhythm Problems: No Cancer: No Cardiovascular Problems: Yes (CHOL, HTN) High Cholesterol: Yes Chest Pain: No Congestive Heart Failure: No COPD: No Cerebrovascular Accident: No Diabetes: No (states no) Diminished Hearing: No Endocrine: No Gastrointestinal Disorders: Yes GERD: Yes Genitourinary: No Headaches: No Hepatitis: No Hiatal Hernia: No Hypertension: Yes Immune Disorder: No Kidney Stones: No Musculoskeletal: Yes Neurologic: No Psychiatric: Yes Reproductive: No Respiratory: No Immunizations Current: Yes Migraines: No Myocardial Infarction: No Renal Failure: No Seizures: No Sleep Apnea: No Ulcer: No Tetanus Vaccination: Unknown Influenza Vaccination: No Past Surgical History Abdominal Surgery: Yes (HERNIA REPAIR CHILD) Appendectomy: No Cardiac Surgery: No Cholecystectomy: No Ear Surgery: No Endocrine Surgery: No Eye Surgery: No Genitourinary Surgery: No Gynecologic Surgery: No Insulin Pump: No Joint Replacement: No Oral Surgery: No Pacemaker: No Thoracic Surgery: No Other Surgery: Yes (right inguinal hernia) Social History Alcohol Use: Yes (COUPLE BEERS/BOTTLE OF WINE DAILY. IN REHAB NOW) Tobacco Use: Yes (1.5 PPD) Substance Use: No Allergies-Medications (Allergen,Severity, Reaction): Coded Allergies: No Known Allergies (Verified Adverse Reaction, Unknown, 08/21/17) Reported Meds & Prescriptions Reported Meds & Active Scripts Active Reported Metoprolol Tartrate 50 Mg Tab 50 Mg PO DAILY Atorvastatin (Atorvastatin Calcium) 20 Mg Tab 20 Mg PO HS Prilosec (Omeprazole Magnesium) 20 Mg Tab 20 Mg PO DAILY Review of Systems Except as stated in HPI: all other systems reviewed are Neg Physical Exam Narrative GENERAL: Well-developed, well-nourished, comfortable, no apparent distress. SKIN: Focused skin assessment warm/dry. HEAD: Atraumatic. Normocephalic. EYES: Pupils equal and round. No scleral icterus. No injection or drainage. ENT: Mucous membranes pink and moist. CARDIOVASCULAR: Regular rate and rhythm. RESPIRATORY: No accessory muscle use. MUSCULOSKELETAL: Left anterior knee with mild swelling surrounding a puncture wound with mild warmth and erythema, no red streaks, no crepitus, no fluctuance or induration. Normal range of flexion and extension in the left knee. The left anterior knee is moderately tender. Bedside ultrasound using the linear probe does not show any obvious foreign body, no cobblestoning, no hypoechoic fluid collection. There is also no knee effusions seen with bedside ultrasound. NEUROLOGICAL: Awake and alert. No obvious cranial nerve deficits. Motor grossly within normal limits. Normal speech. PSYCHIATRIC: Appropriate mood and affect; insight and judgment normal. Data Data Last Documented VS Vital Signs Date Time Temp Pulse Resp B/P (MAP) Pulse Ox O2 Delivery O2 Flow Rate FiO2 08/21/17 17:33 98.1 66 16 153/80 (104) 97 Orders Orders Knee, Complete (4vws) (08/21/17 ) [facility] Medical Decision Making Medical Screen Exam Complete: Yes Emergency Medical Condition: Yes Differential Diagnosis Foreign body, dermatitis/allergic reaction, cellulitis, septic arthritis unlikely Narrative Course Vital signs show heart rate 66, blood pressure 153/80, pulse ox 97% on room air , oral temp of 98.1F. Internet search of [employer] plant toxicity shows that the thorns could cause a localized dermatitis, rash, blistering from a puncture wound. Bedside ultrasound performed by me using the linear probe of the left knee shows no obvious foreign body, no cobblestoning, no hypoechoic fluid collection. There is also no appreciable knee effusion. Left knee x-ray: Normal exam. No radiopaque foreign bodies. Patient was made aware of x-ray findings. He is resting comfortably. There are no signs or symptoms to suggest septic arthritis. This is more likely a localized contact dermatitis from the toxin from the [place] plan. Plan is to start him on prednisone. I will also start him on Keflex as there is a puncture wound with mild surrounding warmth and erythema. He was also advised to use Benadryl. I'll also give him a prescription for tramadol to use for pain especially at night. He was advised follow-up with his primary care physician this week. He was informed on when to return to the emergency department. He verbalizes understanding and agreement with plan. Procedures Procedure Narrative Bedside ultrasound of the left anterior knee: Bedside ultrasound using the linear probe of the left knee shows no obvious foreign body, no cobblestoning, no hypoechoic fluid collection. There is also no appreciable knee effusion. Diagnosis Primary Impression: Dermatitis due to plant Referrals: Primary Care Physician 3 days Additional Instructions: Follow-up with your primary care physician this week. Take medications as prescribed. Return to the emergency department for worsening symptoms or any other concerns as discussed. Scripts Tramadol (Tramadol) 50 Mg Tab 50 MG PO Q8H Y for PAIN, #15 TAB 0 Refills Prov: Joe Pelaez MD 08/21/17 Cephalexin (Keflex) 500 Mg Cap 500 MG PO Q8H for Infection, #30 CAP 0 Refills Prov: Joe Pelaez MD 08/21/17 Prednisone (Prednisone) 50 Mg Tab 50 MG PO DAILY for 5 Days, #5 TAB 0 Refills Prov: Joe Pelaez MD 08/21/17 Disposition: 01 DISCHARGE HOME Condition: Stable Joe Pelaez MD Aug 21, 2017 18:01
--- NOTE | 2017-08-21 18:25 | RADRPT ---
EXAM DATE/TIME: 08/21/2017 17:55 [facility] COMPARISON: No previous studies available for comparison. INDICATIONS : Foreign body. Patient states cutting down a tree and a was stuck by a thorn in patella area. Compla ins of pain. MEDICAL HISTORY : None. SURGICAL HISTORY : None. ENCOUNTER: Initial ACUITY: 4 - 6 days PAIN SCORE: 9/10 LOCATION: Left anterior knee FINDINGS: Four view examination of the left knee demonstrates no evidence of fracture or dislocation. Bony min eralization is normal. The articular surfaces are intact. The suprapatellar soft tissues have a nor mal configuration. CONCLUSION: Normal examination for a patient of this age. Wilber Kaiser MD on August 21, 2017 at 18:22 Board Certified Radiologist. This report was verified electronically.
[2017-08-21] MEDS ORDERED: PRED50 PO (18:34)
[2017-08-21] MEDS ORDERED: TRAM50TA PO (18:34)
[2017-08-21] MEDS ORDERED: CEPH-460 PO (18:34)
[2017-08-21] MEDS ORDERED: CEPHALEXIN MONOHYDRATE 500 MG CAP PO ONE (18:45)
[2017-08-21] MEDS ORDERED: predniSONE 50 MG TAB PO ONE (18:45)
== END 2017-08-21 19:19 | disposition home or self-care (01) ==
LOC: PHEFT 17:26
DX: L25.5 Unspecified contact dermatitis due to plants, except food (principal); M25.562 Pain in left knee; E78.00 Pure hypercholesterolemia, unspecified; K21.9 Gastro-esophageal reflux disease without esophagitis; I10 Essential (primary) hypertension; F17.200 Nicotine dependence, unspecified, uncomplicated
CPT/HCPCS: 73564; 99284; J7512

== ENCOUNTER 2018-01-11 15:54 | Inpatient (IN) | payer OTHER ==
[~2018-01-11] VITALS: Ht 182.9 cm; Wt 67.8 kg
[~2018-01-11 15:54] MED LIST changes: -AMLO5TAB2 PO; +ATOR20TA15 PO; +CEPH-460 PO; +METO50TA PO; -NICO21DI6 T-DERMAL; -OMEP40CA2 PO; +PRED50 PO; +PRIL20TA2 PO; -SIMV20TA PO; +TRAM50TA PO; -VENTAER INH
[2018-01-11 16:00] VITALS: BP 167/89; PULSE 66; RESP 18; TEMP 98.4; O2SAT 99
--- NOTE | 2018-01-11 16:59 | PD ---
HPI Chief Complaint: Medical Clearance Time Seen by Provider: 16:43 Travel History International Travel<30 days: No Contact w/Intl Traveler<30days: No Traveled to known affect area: No History of Present Illness HPI 57-year-old male presents voluntarily with his requesting psychiatric evaluation. The patient reports over the past 2 months he has had increasing depression, occasional suicidal thoughts. He has been drinking alcohol more heavily. He drinks approximately 1 bottle of wine and 4-8 tall beers on a daily basis. He has occasionally thought of killing himself by carbon monoxide poisoning. Today he had his first appointment with a new psychiatrist, Dr. Tc Hale (phone number [phone]) and he recommended that the patient come to the hospital for psychiatric evaluation, likely hospitalization. The patient denies any homicidal ideation, illicit drug use. He has no medical complaints at this time and is currently denying any alcohol withdrawal symptoms. He reports that his last alcoholic drink was yesterday. PFSH Past Medical History Hx Anticoagulant Therapy: Yes (81 MG. ASA) Arthritis: Yes Asthma: No Anxiety: Yes Depression: Yes Heart Rhythm Problems: No Cancer: No Cardiovascular Problems: Yes (CHOL, HTN) High Cholesterol: Yes Chest Pain: No Congestive Heart Failure: No COPD: No Cerebrovascular Accident: No Diabetes: No (states no) Diminished Hearing: No Endocrine: No Gastrointestinal Disorders: Yes GERD: Yes Genitourinary: No Headaches: No Hepatitis: No Hiatal Hernia: No Hypertension: Yes Immune Disorder: No Kidney Stones: No Musculoskeletal: Yes Neurologic: No Psychiatric: Yes Reproductive: No Respiratory: No Immunizations Current: Yes Migraines: No Myocardial Infarction: No Renal Failure: No Seizures: No Sleep Apnea: No Ulcer: No Past Surgical History Abdominal Surgery: Yes (HERNIA REPAIR CHILD) Appendectomy: No Cardiac Surgery: No Cholecystectomy: No Ear Surgery: No Endocrine Surgery: No Eye Surgery: No Genitourinary Surgery: No Gynecologic Surgery: No Insulin Pump: No Joint Replacement: No Oral Surgery: No Pacemaker: No Thoracic Surgery: No Other Surgery: Yes (right inguinal hernia) Social History Alcohol Use: Yes (COUPLE BEERS/BOTTLE OF WINE DAILY. IN REHAB NOW) Tobacco Use: Yes (1.5 PPD) Substance Use: No Allergies-Medications (Allergen,Severity, Reaction): Coded Allergies: No Known Allergies (Verified Adverse Reaction, Unknown, 08/21/17) Reported Meds & Prescriptions Reported Meds & Active Scripts Active Tramadol (Tramadol HCl) 50 Mg Tab 50 Mg PO Q8H PRN Keflex (Cephalexin) 500 Mg Cap 500 Mg PO Q8H Prednisone 50 Mg Tab 50 Mg PO DAILY 5 Days Reported Metoprolol Tartrate 50 Mg Tab 50 Mg PO DAILY Atorvastatin (Atorvastatin Calcium) 20 Mg Tab 20 Mg PO HS Prilosec (Omeprazole Magnesium) 20 Mg Tab 20 Mg PO DAILY Review of Systems Except as stated in HPI: all other systems reviewed are Neg Physical Exam Narrative GENERAL: Pleasant well-developed well-nourished male in no acute distress SKIN: Warm and dry. HEAD: Atraumatic. Normocephalic. EYES: Pupils equal and round. No scleral icterus. No injection or drainage. ENT: No nasal bleeding or discharge. Mucous membranes pink and moist. NECK: Trachea midline. No JVD. CARDIOVASCULAR: Regular rate and rhythm. No murmur appreciated. RESPIRATORY: No accessory muscle use. Clear to auscultation. Breath sounds equal bilaterally. GASTROINTESTINAL: Abdomen soft, non-tender, nondistended. Hepatic and splenic margins not palpable. MUSCULOSKELETAL: No obvious deformities. No edema. NEUROLOGICAL: Awake and alert. No obvious cranial nerve deficits. Motor grossly within normal limits. Normal speech. PSYCHIATRIC: Depressed mood; insight and judgment normal. Data Data Last Documented VS Vital Signs Date Time Temp Pulse Resp B/P (MAP) Pulse Ox O2 Delivery O2 Flow Rate FiO2 01/11/18 16:00 98.4 66 18 167/89 (115) 99 Orders Orders Complete Blood Count With Diff (01/11/18 16:52) Comprehensive Metabolic Panel (01/11/18 16:52) Thyroid Stimulating Hormone (01/11/18 16:52) Psych Screen (01/11/18 16:52) Drug Screen, Random Urine (01/11/18 16:52) Alcohol (Ethanol) (01/11/18 16:52) Salicylates (Aspirin) (01/11/18 16:52) Tylenol (Acetaminophen) (01/11/18 16:52) Alcohol Withdrawal Asmt-Ciwa ONCE (01/11/18 16:52) Flumazenil Inj (Romazicon Inj) (01/11/18 17:00) Lorazepam (Ativan) (01/11/18 17:00) Lorazepam Inj (Ativan Inj) (01/11/18 17:00) Lorazepam (Ativan) (01/11/18 17:00) Lorazepam Inj (Ativan Inj) (01/11/18 17:00) Lorazepam Inj (Ativan Inj) (01/11/18 17:00) Lorazepam Inj (Ativan Inj) (01/11/18 17:00) Labs Laboratory Tests Test 01/11/18 16:58 01/11/18 17:00 White Blood Count 7.4 TH/MM3 Red Blood Count 4.71 MIL/MM3 Hemoglobin 15.7 GM/DL Hematocrit 45.3 % Mean Corpuscular Volume 96.2 FL Mean Corpuscular Hemoglobin 33.4 PG Mean Corpuscular Hemoglobin Concent 34.7 % Red Cell Distribution Width 13.1 % Platelet Count 207 TH/MM3 Mean Platelet Volume 7.9 FL Neutrophils (%) (Auto) 53.5 % Lymphocytes (%) (Auto) 30.4 % Monocytes (%) (Auto) 10.9 % Eosinophils (%) (Auto) 4.0 % Basophils (%) (Auto) 1.2 % Neutrophils # (Auto) 4.0 TH/MM3 Lymphocytes # (Auto) 2.3 TH/MM3 Monocytes # (Auto) 0.8 TH/MM3 Eosinophils # (Auto) 0.3 TH/MM3 Basophils # (Auto) 0.1 TH/MM3 CBC Comment DIFF FINAL Differential Comment Blood Urea Nitrogen 13 MG/DL Creatinine 1.06 MG/DL Random Glucose 108 MG/DL Total Protein 8.1 GM/DL Albumin 3.6 GM/DL Calcium Level 8.8 MG/DL Alkaline Phosphatase 76 U/L Aspartate Amino Transf (AST/SGOT) 37 U/L Alanine Aminotransferase (ALT/SGPT) 22 U/L Total Bilirubin 0.3 MG/DL Sodium Level 141 MEQ/L Potassium Level 3.9 MEQ/L Chloride Level 105 MEQ/L Carbon Dioxide Level 25.8 MEQ/L Anion Gap 10 MEQ/L Estimat Glomerular Filtration Rate 72 ML/MIN Thyroid Stimulating Hormone 3rd Gen 8.740 uIU/ML Acetaminophen Level LESS THAN 2.0 MCG/ML Ethyl Alcohol Level LESS THAN 3 MG/DL Salicylates Level 4.3 MG/DL MDM Medical Decision Making Medical Screen Exam Complete: Yes Emergency Medical Condition: Yes Medical Record Reviewed: Yes Differential Diagnosis Major depressive disorder, depressive disorder not otherwise specified, acute psychosis, substance-induced mood disorder, adjustment reaction, alcoholism Narrative Course I discussed the patient in detail with his Gaby (cell [phone]) . Attempted to discuss with Dr. Victor the psychiatrist that he saw today but there was no answer at his office. CIWA precautions have been ordered. Plan is for psychiatric evaluation. Mental health screening discussed with the patient. Psychiatric screen ordered. Lab work is been reviewed. TSH is elevated at 8.740no history of hypothyroidism that he is aware of. Over the past 3 years she has had TSH levels ranging from 3.2-4.2. Certainly this should be monitored as it could be an indication of hypothyroidism which could be exacerbating his depressive symptoms. He is medically cleared for psychiatric disposition. Diagnosis Primary Impression: Medical clearance for psychiatric admission Additional Impressions: Alcohol abuse Elevated TSH Jeramy Elaine January 11, 2018 16:59
[2018-01-11] MEDS ORDERED: FLUMAZENIL 0.5 MG/5 ML VIAL IV PUSH PRN (17:00)
[2018-01-11] MEDS ORDERED: LORazepam 2 MG/ML VIAL IV PUSH PRN ×4 (17:00)
[2018-01-11 17:16] LABS: BASOPHIL # 0.1 TH/MM3 (0-0.2); BASOPHIL % 1.2 % (0.0-2.0); EOSINOPHIL # 0.3 TH/MM3 (0-0.4); HEMATOCRIT 45.3 % (39.0-51.0); HEMOGLOBIN 15.7 GM/DL (13.0-17.0); LYMPH % 30.4 % (9.0-44.0); LYMPHOCYTE # 2.3 TH/MM3 (1.0-4.8); MEAN CELL VOLUME 96.2 FL (80.0-100.0); MEAN CORPUSCULAR HEMOGLOBIN 33.4 PG (27.0-34.0); MEAN CORPUSCULAR HGB CONC 34.7 % (32.0-36.0); MEAN PLATELET VOLUME 7.9 FL (7.0-11.0); MONO % 10.9 % (0.0-8.0); MONOCYTE # 0.8 TH/MM3 (0-0.9); NEUT % 53.5 % (16.0-70.0); PLATELET COUNT 207 TH/MM3 (150-450); RED BLOOD COUNT 4.71 MIL/MM3 (4.50-5.90); RED CELL DISTRIBUTION WIDTH 13.1 % (11.6-17.2); WHITE BLOOD COUNT 7.4 TH/MM3 (4.0-11.0)
[2018-01-11 17:28] LABS: ALBUMIN 3.6 GM/DL (3.4-5.0); ALT (GPT) 22 U/L (12-78); AST (GOT) 37 U/L (15-37); BICARBONATE 25.8 MEQ/L (21.0-32.0); BLOOD UREA NITROGEN 13 MG/DL (7-18); CALCIUM 8.8 MG/DL (8.5-10.1); CHLORIDE 105 MEQ/L (98-107); CREATININE 1.06 MG/DL (0.60-1.30); GLOMERULAR FILTRATION RATE 72 ML/MIN (>89); GLUCOSE,RANDOM 108 MG/DL (74-106); SODIUM (NA) 141 MEQ/L (136-145)
[2018-01-11 17:38] LABS: ALKALINE PHOSPHATASE 76 U/L (45-117); TOTAL BILIRUBIN ADULT 0.3 MG/DL (0.2-1.0); TOTAL PROTEIN 8.1 GM/DL (6.4-8.2)
[2018-01-11 17:41] LABS: ACETAMINOPHEN LESS THAN 2.0 MCG/ML (10.0-30.0)
[2018-01-11 21:26] VITALS: BP 181/103; PULSE 70; RESP 20; TEMP 97.3; O2SAT 95
[2018-01-11] MEDS: LORazepam 2 MG TAB PO PRN (23:25)
[2018-01-12] VITALS (7 sets, daily range): BP systolic 139–178; BP diastolic 73–99; PULSE 56–67; RESP 16–18; TEMP 98–98.3; O2SAT 96–99
[2018-01-12] MEDS: METOPROLOL TARTRATE 50 MG TAB PO SCH (10:38)
[2018-01-12] MEDS: SERTRALINE HCL 50 MG TAB PO SCH (10:45)
--- NOTE | 2018-01-12 10:47 | HHI.HP ---
Provisional Diagnosis Admission Date Sadorus I. Bipolar affective disorder current episode depressed severe without psychosis, alcohol is use disorder chronic Certification of Person's Competence To Provide Express and Informed Consent I have personally examined Shoaib Kowalski , a person being served at [facility] on, January 12, 2018 10:13. Express and informed consent means consent voluntarily given in writing, by a competent person, after sufficient explanation and disclosure of the subject matter involved to enable the person to make a knowing and willful decision without any element of force, fraud, deceit, duress, or other form of constraint or coercion. This person is 18 years of age or older, is not now known to be incompetent to consent to treatment with a guardian advocate, and does not have a health care surrogate or proxy currently making medical treatment decisions. I have found this person to be one of the following: []xxxx Competent to provide express and informed consent, as defined above, for voluntary admission to this facility and is competent to provide express and informed consent for treatment. He/she has the consistent capacity to make well reasoned, willful, and knowing decisions concerning his or her medical or mental health treatment. The person fully and consistently understands the purpose of the admission for examination/placement and is fully capable of personally exercising all rights assured [place] Incompetent to provide express and informed consent to voluntary admission, and this is incompetent to provide express and informed consent to treatment. The person must be transferred to involuntary status and a petition for a guardian advocate filed with the Circuit Court. [] Refusing to provide express and informed consent to voluntary admission but is competent to provide express and informed consent for treatment. The person must be discharged or transferred to involuntary status. Form shall be completed within 24 hours of a person's arrival at the receiving facility and filed in the clinical record of each person: 1. Admitted on a voluntary basis 2. Permitted to provide express and informed consent to his/her own treatment 3. Allowed to transfer from involuntary to voluntary status 4. Prior to permitting a person to consent to his or her own treatment after having been previously found incompetent to consent to treatment. History of Present Illness Capacity: Has Capacity Psych Chief Complaint: Depression with suicidal ideation, alcohol misuse HPI Patient is a 57-year-old white male who comes here voluntarily from his psychiatrist's office. Accompanied by his . It appears this is the patient 's first visit to a psychiatrist, while at that office he complained of increased suicidal ideation with a plan, that he had researched suicide methods online through the past week or so. Patient also is in alcohol misuse her. He has recently been drinking daily mainly beer but occasionally hard liquor. He drinks in the morning he drinks by himself, denies blackout spells acknowledges passing out, has had 2-3 detoxes most recently being a few months ago at [facility] where he was for a month. He relapsed very quickly after the discharge. He denies any legal issues related to drinking. He denies other drug use. Patient has had one brief psychiatric assessment by Dr. Quinones here about 2 years ago. Patient states his first drink was at about 10 years of age he had a period of sobriety for 2-3 years 10+ years ago. He also acknowledges having depressive symptoms on and off for a number of years he acknowledges most recent depressive episode starting about a month or 2 ago. He says he self medicates to help him sleep with the alcohol, he says his appetite is poor and his energy level is poor, he states he "does not cry",, there is increased anhedonia with a decreased sex drive, he finds his concentration and attention was poor he does not cope well with small stress, he denies voices or visions. He is vague today about continued suicidality though he denies prior suicide attempts. There is somewhat of a hopelessness with him also. He also does describe episodes that could be manic in nature with rapid pressured speech and increased energy, decreased need for sleep, poor task completion. Plus risky behaviors such as spending money does not have substance use. I have discussed this with patient's name is Gaby [phone] he agrees with the above. I did discuss medications with the patient will start the patient on Zoloft 25 mg daily and Abilify 5 mg at at bedtime. Labs have also shown marked increase in his TSH we will have a hospitalist consult will is related to possible thyroid dysfunction. We will also order the ciwa protocol to address possible withdrawal symptoms. Hopeless be fairly short stay return to his community psychiatrist, individual counseling, back with his family Review of Systems Constitutional: DENIES: Diaphoretic episodes, Fatigue, Fever, Weight gain, Weight loss, Chills, Dizziness, Change in appetite, Night Sweats Endocrine: DENIES: Heat/cold intolerance, Polydipsia, Polyuria, Polyphagia Eyes: DENIES: Blurred vision, Diplopia, Eye inflammation, Eye pain, Vision loss , Photosensitivity, Double Vision Ears, nose, mouth, throat: DENIES: Tinnitus, Hearing loss, Vertigo, Nasal discharge, Oral lesions, Throat pain, Hoarseness, Ear Pain, Running Nose, Epistaxis, Sinus Pain, Toothache, Odynophagia Respiratory: DENIES: Apneas, Cough, Snoring, Wheezing, Hemoptysis, Sputum production, Shortness of breath Cardiovascular: DENIES: Chest pain, Palpitations, Syncope, Dyspnea on Exertion , PND, Lower Extremity Edema, Orthopnea, Claudication Gastrointestinal: DENIES: Abdominal pain, Black stools, Bloody stools, Constipation, Diarrhea, Nausea, Vomiting, Difficulty Swallowing, Anorexia Genitourinary: DENIES: Sexual dysfunction, Urinary frequency, Urinary incontinence, Urgency, Hematuria, Dysuria, Nocturia, Penile Discharge, Testicular Pain, Testicular Swelling Musculoskeletal: DENIES: Joint pain, Muscle aches, Stiffness, Joint Swelling, Back pain, Neck pain Integumentary: DENIES: Abnormal pigmentation, Nail changes, Pruritus, Rash Hematologic/lymphatic: DENIES: Bruising, Lymphadenopathy Immunologic/allergic: DENIES: Eczema, Urticaria Neurologic: DENIES: Abnormal gait, Headache, Localized weakness, Paresthesias, Seizures, Speech Problems, Tremor, Poor Balance Psychiatric: COMPLAINS OF: Anxiety, Depression, Suicidal Ideation Past Psych History Psychological trauma history Patient denies Violence risk - others (6 mos) Low Violence risk - self (6 mos) Moderate Substance Abuse History Drugs/Alcohol past 12 months Patient is an active alcohol abuser Past Family Social History Coded Allergies: No Known Allergies (Verified Allergy, Unknown, 01/12/18) Active Scripts Tramadol (Tramadol) 50 Mg Tab, 50 MG PO Q8H Y for PAIN, #15 TAB 0 Refills Prov:Joe Pelaez MD 08/21/17 Cephalexin (Keflex) 500 Mg Cap, 500 MG PO Q8H for Infection, #30 CAP 0 Refills Prov:Joe Pelaez MD 08/21/17 Prednisone (Prednisone) 50 Mg Tab, 50 MG PO DAILY for 5 Days, #5 TAB 0 Refills Prov:Joe Pelaez MD 08/21/17 Reported Medications Metoprolol Tartrate (Metoprolol Tartrate) 50 Mg Tab, 50 MG PO DAILY, #30 TAB 0 Refills 08/21/17 Atorvastatin (Atorvastatin) 20 Mg Tab, 20 MG PO HS for Cholesterol Management, # 30 TAB 0 Refills 08/21/17 Omeprazole Magnesium (Prilosec) 20 Mg Tab, 20 MG PO DAILY 08/21/17 Current Medications Medications (Trade) Dose Ordered Sig/Fani Route Start Time Stop Time Status Last Admin (Romazicon Inj) 0.2 mg Q1M PRN IV PUSH 01/11/18 17:00 (Ativan) 1 mg Q4H PRN PO 01/11/18 17:00 (Ativan Inj) 1 mg Q4H PRN IV PUSH 01/11/18 17:00 (Ativan) 2 mg Q2H PRN PO 01/11/18 17:00 01/11/18 23:25 (Ativan Inj) 2 mg Q2H PRN IV PUSH 01/11/18 17:00 (Ativan Inj) 2 mg Q1H PRN IV PUSH 01/11/18 17:00 (Ativan Inj) 2 mg Q15M PRN IV PUSH 01/11/18 17:00 (Zoloft) 25 mg DAILY PO 01/12/18 10:15 (Abilify) 5 mg HS PO 01/12/18 21:00 Family Psych History Patient denies Social History 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 2) Patient verbal able access healthcare is cooperative Physical Exam Plans for abdominal pain. Patient moving all 4 extremities without difficulty no abnormal motor movements noted Vital Signs Vital Signs Date Time Temp Pulse Resp B/P (MAP) Pulse Ox O2 Delivery O2 Flow Rate FiO2 01/12/18 05:30 98.1 60 18 178/88 (118) 98 Room Air Lab Results Test 01/11/18 16:58 01/11/18 17:00 01/11/18 19:45 White Blood Count 7.4 TH/MM3 Red Blood Count 4.71 MIL/MM3 Hemoglobin 15.7 GM/DL Hematocrit 45.3 % Mean Corpuscular Volume 96.2 FL Mean Corpuscular Hemoglobin 33.4 PG Mean Corpuscular Hemoglobin Concent 34.7 % Red Cell Distribution Width 13.1 % Platelet Count 207 TH/MM3 Mean Platelet Volume 7.9 FL Neutrophils (%) (Auto) 53.5 % Lymphocytes (%) (Auto) 30.4 % Monocytes (%) (Auto) 10.9 % Eosinophils (%) (Auto) 4.0 % Basophils (%) (Auto) 1.2 % Neutrophils # (Auto) 4.0 TH/MM3 Lymphocytes # (Auto) 2.3 TH/MM3 Monocytes # (Auto) 0.8 TH/MM3 Eosinophils # (Auto) 0.3 TH/MM3 Basophils # (Auto) 0.1 TH/MM3 CBC Comment DIFF FINAL Differential Comment Blood Urea Nitrogen 13 MG/DL Creatinine 1.06 MG/DL Random Glucose 108 MG/DL Total Protein 8.1 GM/DL Albumin 3.6 GM/DL Calcium Level 8.8 MG/DL Alkaline Phosphatase 76 U/L Aspartate Amino Transf (AST/SGOT) 37 U/L Alanine Aminotransferase (ALT/SGPT) 22 U/L Total Bilirubin 0.3 MG/DL Sodium Level 141 MEQ/L Potassium Level 3.9 MEQ/L Chloride Level 105 MEQ/L Carbon Dioxide Level 25.8 MEQ/L Anion Gap 10 MEQ/L Estimat Glomerular Filtration Rate 72 ML/MIN Thyroid Stimulating Hormone 3rd Gen 8.740 uIU/ML Acetaminophen Level LESS THAN 2.0 MCG/ML Ethyl Alcohol Level LESS THAN 3 MG/DL Salicylates Level 4.3 MG/DL Urine Opiates Screen NEG Urine Barbiturates Screen NEG Urine Amphetamines Screen NEG Urine Benzodiazepines Screen NEG Urine Cocaine Screen NEG Urine Cannabinoids Screen NEG Mental Status Examination Appearance: Appropriate Consciousness: Alert Orientation: x4 Motor Activity: Normal gait Speech: Unremarkable Language: Adequate Fund of Knowledge: Adequate Attention and Concentration: Adequate Memory: Unremarkable Mood: Sad Affect: Other (Decreased range and intensity) Thought Process & Associations: Intact Thought Content: Appropriate Hallucination Type: None Delusion Type: None Suicidal Ideation: Yes (Vague) Suicidal Plan: Yes (Vague) Suicidal Intention: Yes (Vague) Homicidal Ideation: No Homicidal Plan: No Homicidal Intention: No Insight: Adequate Judgment: Adequate Assessment & Plan Problem List: (1) Bipolar affective disorder, current episode depressed ICD Codes: F31.30 - Bipolar disorder, current episode depressed, mild or moderate severity, unspecified (2) Alcohol use disorder ICD Codes: F10.99 - Alcohol use, unspecified with unspecified alcohol-induced disorder Status: Chronic Assessment & Plan Estimated LOS: 3-5 days patient meets criteria for voluntary assessment and treatment. We will start patient on Zoloft 25 mg daily and Abilify 5 mg at at bedtime. We will continue the ciwa protocol. We will have hospitalist consult with us to assess thyroid function Discharge Planning Return to family, follow-up with private psychiatrist in community Request HC Surrog/Guard Advoc?: No Problem Qualifiers (1) Bipolar affective disorder, current episode depressed: Qualified Codes: F31.4 - Bipolar disorder, current episode depressed, severe, without psychotic features Gentry Camargo MD January 12, 2018 10:46
--- NOTE | 2018-01-12 11:51 | PD.CONS ---
HPI Service [facility] Hospitalists Consult Requested By Dr. Camargo Reason for Consult Elevated TSH Primary Care Physician Sae Callahan Jr, DO Diagnoses: (1) Depression (2) Hypothyroidism (3) Alcohol abuse History of Present Illness 57 year old male with history of HTN, HLD, GERD, and EtOH abuse who presented to the ER voluntarily from his psychiatrist's office for worsening depression and suicidal ideations. He is accompanied by his . He was admitted to the psychiatric salas and hospitalist consulted for evaluation of elevated TSH. The patient states he has never been diagnosed with any thyroid dysfunction in the past and denies a family history of thyroid disorders. He endorses cold intolerance, fatigue, decreased appetite, diminished energy, anhedonia, and difficulty concentrating. He denies unintentional weight gain, edema, coughing, or dysphagia. He states his has been telling him for months to get his thyroid checked because he always complains of being cold. He is agreeable to starting medication for hypothyroidism and understands he will need to follow-up with lab monitoring as an outpatient to adjust dosing as needed. Review of Systems Except as stated in HPI: all other systems reviewed are Neg Past Family Social History Allergies: Coded Allergies: No Known Allergies (Verified Allergy, Unknown, 01/12/18) Past Medical History HTN HLD GERD EtOH abuse Depression Past Surgical History Fractured arm Reported Medications Tramadol (Tramadol HCl) 50 Mg Tab 50 Mg PO Q8H PRN Keflex (Cephalexin) 500 Mg Cap 500 Mg PO Q8H Prednisone 50 Mg Tab 50 Mg PO DAILY 5 Days Metoprolol Tartrate 50 Mg Tab 50 Mg PO DAILY Atorvastatin (Atorvastatin Calcium) 20 Mg Tab 20 Mg PO HS Prilosec (Omeprazole Magnesium) 20 Mg Tab 20 Mg PO DAILY Family History Diabetes in father and brothers Social History Lives with his EtOH: 4 beers daily Tobacco: 1 PPD Illicit drugs: denies Physical Exam Vital Signs Vital Signs Date Time Temp Pulse Resp B/P (MAP) Pulse Ox O2 Delivery O2 Flow Rate FiO2 01/12/18 11:33 98.2 56 18 99 01/12/18 11:27 01/12/18 11:01 67 18 175/99 (124) 96 Room Air 01/12/18 05:30 98.1 60 18 178/88 (118) 98 Room Air 01/12/18 01:13 98.3 67 18 139/73 (95) 96 Room Air 01/11/18 21:26 97.3 70 20 181/103 (129) 95 Room Air 01/11/18 16:00 98.4 66 18 167/89 (115) 99 Physical Exam GENERAL: WN, WD male resting in bed in NAD. SKIN: Warm and dry. HEENT: AT/NC. Pupils equal and round. No periorbital edema. MMM. NECK: Supple no tender LAD or JVD. No thyromegaly or palpable nodules. HEART: Slightly bradycardic with a regular rhythm. No appreciable murmurs. LUNGS: CTAB without wheezes or crackles. ABDOMEN: +BS, soft, NT, ND. EXTREMITIES: No LE edema. 2+ pedal pulses. NEURO: Awake and alert. Nonfocal. Laboratory Laboratory Tests Test 01/11/18 16:58 01/11/18 17:00 01/11/18 19:45 White Blood Count 7.4 Red Blood Count 4.71 Hemoglobin 15.7 Hematocrit 45.3 Mean Corpuscular Volume 96.2 Mean Corpuscular Hemoglobin 33.4 Mean Corpuscular Hemoglobin Concent 34.7 Red Cell Distribution Width 13.1 Platelet Count 207 Mean Platelet Volume 7.9 Neutrophils (%) (Auto) 53.5 Lymphocytes (%) (Auto) 30.4 Monocytes (%) (Auto) 10.9 Eosinophils (%) (Auto) 4.0 Basophils (%) (Auto) 1.2 Neutrophils # (Auto) 4.0 Lymphocytes # (Auto) 2.3 Monocytes # (Auto) 0.8 Eosinophils # (Auto) 0.3 Basophils # (Auto) 0.1 CBC Comment DIFF FINAL Differential Comment Blood Urea Nitrogen 13 Creatinine 1.06 Random Glucose 108 Total Protein 8.1 Albumin 3.6 Calcium Level 8.8 Alkaline Phosphatase 76 Aspartate Amino Transf (AST/SGOT) 37 Alanine Aminotransferase (ALT/SGPT) 22 Total Bilirubin 0.3 Sodium Level 141 Potassium Level 3.9 Chloride Level 105 Carbon Dioxide Level 25.8 Anion Gap 10 Estimat Glomerular Filtration Rate 72 Thyroid Stimulating Hormone 3rd Gen 8.740 Acetaminophen Level LESS THAN 2.0 Ethyl Alcohol Level LESS THAN 3 Salicylates Level 4.3 Urine Opiates Screen NEG Urine Barbiturates Screen NEG Urine Amphetamines Screen NEG Urine Benzodiazepines Screen NEG Urine Cocaine Screen NEG Urine Cannabinoids Screen NEG Result Diagram: 01/11/18165701/11/181657 Assessment and Plan Problem List: (1) Hypothyroidism ICD Code: E03.9 - Hypothyroidism, unspecified (2) Depression ICD Code: F32.9 - Major depressive disorder, single episode, unspecified Status: Chronic (3) Alcohol abuse ICD Code: F10.10 - Alcohol abuse, uncomplicated Status: Chronic Assessment and Plan 57 year old male with history of HTN, HLD, GERD, and EtOH abuse admitted to the psychiatric service for depressive symptoms and suicidal ideation. He was found to have an elevated TSH and hospitalist services consulted for further evaluation and recommendations. 1. Hypothyroidism - Serum TSH 8.74 and patient symptomatic (cold intolerance, fatigue, borderline bradycardia) - No enlargement of thyroid or palpable nodules to warrant thyroid ultrasound - Check free T3 and T4 - Start levothyroxine 50 mcg - Will need f/u TSH in 4-6 weeks as outpatient to titrate dosing - D/w patient taking this on an empty stomach with a full glass of water 2. Depression with suicidal ideation - Managed per psych, starting on Zoloft and Abilify 3. EtOH abuse - Daily beer drinker - [facility] protocol 4. HTN - Resume home metoprolol and monitor BP 5. GERD - Resume home Zantac 6. HLD - Resume home statin Thank you for this consultation. Elma Culver MD January 12, 2018 11:51
[2018-01-12] MEDS: LORazepam 1 MG TAB PO PRN ×2 (16:25→20:30)
[2018-01-12 17:38] LABS: FREE T3 2.44 PG/ML (2.18-3.98); FREE T4 0.81 NG/DL (0.76-1.46)
[2018-01-12] MEDS: ARIPiprazole 5 MG TAB PO SCH (20:29)
[2018-01-12] MEDS: ATORVASTATIN 20 MG TAB PO SCH (20:29)
[2018-01-13] MEDS: LORazepam 1 MG TAB PO PRN ×3 (06:21→15:39)
[2018-01-13 06:24] VITALS: BP 140/86; PULSE 86; RESP 18; TEMP 98; O2SAT 95
[2018-01-13] MEDS: PANTOPRAZOLE SOD 20 MG DELAYED RELEASE TAB PO SCH (08:18)
[2018-01-13] MEDS: METOPROLOL TARTRATE 50 MG TAB PO SCH (08:18)
[2018-01-13] MEDS: SERTRALINE HCL 50 MG TAB PO SCH (08:18)
--- NOTE | 2018-01-13 09:58 | HHI.PR ---
Subjective Remarks Follow-up visit for abnormal TSH. Patient is seen and examined in the day room today. Reports that he would like to go home, awaiting to speak to the psychiatrist today. He reports that he wanted to come to rehab but did not realize that he was going to be in her room with just the bed. He denies any fevers, chills, nausea, vomiting, diarrhea, dizziness, lightheadedness, shortness of breath, cough or chest pain. He voices no other acute concerns or complaints other than wanting to go home. Objective Vitals Vital Signs Date Time Temp Pulse Resp B/P (MAP) Pulse Ox O2 Delivery O2 Flow Rate FiO2 01/13/18 06:24 98.0 86 18 140/86 (104) 95 01/12/18 17:45 98.0 61 16 146/76 (99) 97 01/12/18 16:00 61 18 146/76 (99) 01/12/18 11:42 165/80 (108) 01/12/18 11:33 98.2 56 18 99 01/12/18 11:27 01/12/18 11:01 67 18 175/99 (124) 96 Room Air Result Diagram: 01/11/18 1658 01/11/18 1658 Objective Remarks GENERAL: male ambulating in the diaz in [facility]. SKIN: Warm and dry. HEENT: Pupils equal and round. No periorbital edema. MMM. NECK: Supple no tender. No thyromegaly or palpable nodules. HEART: Regular rate and rhythm. No appreciable murmurs. LUNGS: Clear throughout all lobes without wheezes or crackles. ABDOMEN: +BS, soft, nontender, nondistended, no guarding. EXTREMITIES: No LE edema. 2+ pedal pulses. NEURO: Awake and alert. Nonfocal. A/P Problem List: (1) Hypothyroidism ICD Code: E03.9 - Hypothyroidism, unspecified (2) Depression ICD Code: F32.9 - Major depressive disorder, single episode, unspecified Status: Chronic (3) Alcohol abuse ICD Code: F10.10 - Alcohol abuse, uncomplicated Status: Chronic Assessment and Plan 57 year old male with history of HTN, HLD, GERD, and EtOH abuse admitted to the psychiatric service for depressive symptoms and suicidal ideation. He was found to have an elevated TSH and hospitalist services consulted for further evaluation and recommendations. 1. Hypothyroidism - Serum TSH 8.74 and patient symptomatic (cold intolerance, fatigue, borderline bradycardia) - No enlargement of thyroid or palpable nodules to warrant thyroid ultrasound -Free T4 and T3 WNL - Start levothyroxine 50 mcg - Will need f/u TSH in 4-6 weeks as outpatient to titrate dosing - D/w patient taking this on an empty stomach with a full glass of water, voiced understanding 2. Depression with suicidal ideation - Managed per psych, starting on Zoloft and Abilify 3. EtOH abuse - Daily beer drinker - [facility]WA protocol 4. HTN - Resume home metoprolol -BP and heart rate stable 5. GERD -Continue Zantac 6. HLD -Continue statin DVT prophylaxis-ambulation Discussed with nurse, patient requesting to leave, he is here on a voluntary status. Awaiting to discuss further with psychiatrist. Ham aM January 13, 2018 09:58
--- NOTE | 2018-01-13 10:33 | PD.TTN ---
Patient Problems 1. Discharge planning 2. Medication compliance 3. Knowledge deficit 4. Lack of coping skills Progress Toward Goals Provider Present: Dr. Bunny Camargo Provider Input: 01/13/18- Pt. is an alcoholic with a history of depression. Nurse(s) Present: Joann Nurse(s) Input: 01/13/18- Pt. recieved ativan 2x at night due to alcohol withdrawal symptoms. Pt. is discharged focused. Pt. attmpts to hide withdrawal shakes by tucking his arms. Group Spec/RT/OT/SANDOVAL Present: JAIME Florentino Group Spec/RT/OT/SANDOVAL Input: 01/13/18- New admit patient has not yet been assessed by this team. Angel Heller January 13, 2018 10:33
--- NOTE | 2018-01-13 11:23 | HHI.PYPN ---
Subjective Chief Complaint: Depression with suicidal ideation, alcohol misuse Remarks Patient seen in his room with nurse Joann chart review, patient compliant medication, patient discussed with nurse. Patient somewhat more irritable and angry with me this morning clinical of the noise on the unit saying the bedroom comfortable. And that he wants to leave because he needs to take care of his elderly mother. He now denies suicidality. He is showing little insight into the intensity of the relationship between his depression as alcohol misuse. At this time I feel the patient still meets criteria for inpatient psychiatric stay to continue monitoring for suicidality and for tolerance with medication. He also wished to have him speak with Counselor related to sober living, substance abuse programs in [facility]. Patient became more angry. I then attempted to explain to him the [facility] procedures. Then said he wanted nothing more to say to me at that time. I have since talked with patient's Gaby at [phone] she is a PA that works. [employer]. She is in the hospital. He is coming down to speak with her and herself. I feel this is appropriate at this time. She also stated the patient's mother lives, parents apartment in their house and the patient's brother's home to help care for her that she is in no danger of not getting appropriate care. Review of Systems Except as stated in HPI: all other systems reviewed are Neg Mental Status Examination Appearance: Appropriate Consciousness: Alert Orientation: x4 Motor Activity: Normal gait Speech: Unremarkable Language: Adequate Fund of Knowledge: Adequate Attention and Concentration: Adequate Memory: Unremarkable Mood: Angry, Sad, Irritable Affect: Other (Slight increased range and intensity) Thought Process & Associations: Intact Thought Content: Appropriate Hallucination Type: None Delusion Type: None Suicidal Ideation: No (Denies today) Suicidal Plan: No (Denies) Suicidal Intention: No (Denies to the) Homicidal Ideation: No Homicidal Plan: No Homicidal Intention: No Insight: Adequate Judgment: Adequate Results Labs Test 01/12/18 16:49 Free Thyroxine 0.81 NG/DL Free Triiodothyronine (T3) pg/dL 2.44 PG/ML Vitals/IOs Vital Signs Date Time Temp Pulse Resp B/P (MAP) Pulse Ox O2 Delivery O2 Flow Rate FiO2 01/13/18 06:24 98.0 86 18 140/86 (104) 95 01/12/18 11:01 Room Air Assessment & Plan Problem List: (1) Bipolar affective disorder, current episode depressed ICD Codes: F31.30 - Bipolar disorder, current episode depressed, mild or moderate severity, unspecified (2) Alcohol use disorder ICD Codes: F10.99 - Alcohol use, unspecified with unspecified alcohol-induced disorder Status: Chronic Assessment & Plan Estimated LOS: days to the patient somewhat angry and irritable and resistance to treatment or continued hospitalization. He is compliant medication. However I feel patient's history demands further observation. His depression is intense severe. He also did research investigate methods of suicide recently. Patient's will be visiting with him today also we will need to see her impression of his status. We will be consideration of discharge within 24-48 hours if appropriate Justification for Cont. Inpt. This time patient many decompensate a place to the lower level of care Discharge Planning Return home with follow-up private psychiatrist in community Request HC Surrog/Guard Advoc?: No Problem Qualifiers (1) Bipolar affective disorder, current episode depressed: Qualified Codes: F31.4 - Bipolar disorder, current episode depressed, severe, without psychotic features Gentry Camargo MD January 13, 2018 11:23
[2018-01-13] MEDS: hydrOXYzine HCL 50 MG TAB PO PRN ×2 (14:47→21:11)
[2018-01-13] MEDS: LORazepam 2 MG TAB PO PRN (15:37)
[2018-01-13 16:45] VITALS: BP 156/86; PULSE 84
[2018-01-13] MEDS ORDERED: HALOPERIDOL LACTATE 5 MG/ML AMP ONE (18:17)
[2018-01-13] MEDS ORDERED: LORazepam 2 MG/ML VIAL IM ONE (18:30)
[2018-01-13] MEDS ORDERED: HALOPERIDOL LACTATE 5 MG/ML AMP IM ONE (18:30)
[2018-01-13] MEDS: ATORVASTATIN 20 MG TAB PO SCH (21:00)
[2018-01-13] MEDS: ARIPiprazole 5 MG TAB PO SCH (21:11)
[2018-01-13] MEDS: diphenhydrAMINE HCL 50 MG CAP PO PRN (21:14)
[2018-01-14] MEDS: LEVOTHYROXINE SODIUM 50 MCG TAB PO SCH (05:30)
[2018-01-14 06:07] VITALS: BP 124/78; PULSE 90; RESP 18; TEMP 97.3; O2SAT 100
[2018-01-14] MEDS: PANTOPRAZOLE SOD 20 MG DELAYED RELEASE TAB PO SCH (08:36)
[2018-01-14] MEDS: METOPROLOL TARTRATE 50 MG TAB PO SCH (08:36)
[2018-01-14] MEDS: SERTRALINE HCL 50 MG TAB PO SCH (08:36)
[2018-01-14] MEDS: LORazepam 2 MG TAB PO PRN ×3 (10:16→22:38)
[2018-01-14 14:30] VITALS: BP 130/82; PULSE 64; TEMP 98.2; O2SAT 98
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
[2018-01-14] MEDS: LORazepam 1 MG TAB PO PRN (16:58)
[2018-01-14 18:22] VITALS: BP 126/72; PULSE 71; RESP 18; TEMP 98; O2SAT 98
[2018-01-14] MEDS: ARIPiprazole 5 MG TAB PO SCH (20:30)
[2018-01-14] MEDS: ATORVASTATIN 20 MG TAB PO SCH (20:30)
[2018-01-14] MEDS: diphenhydrAMINE HCL 50 MG CAP PO PRN (20:30)
[2018-01-14] MEDS: hydrOXYzine HCL 50 MG TAB PO PRN (20:31)
[2018-01-15] MEDS: LEVOTHYROXINE SODIUM 50 MCG TAB PO SCH (05:29)
[2018-01-15] MEDS: LORazepam 2 MG TAB PO PRN (05:29)
[2018-01-15 05:40] VITALS: BP 157/85; PULSE 67; RESP 17; TEMP 97.2; O2SAT 95
[2018-01-15] MEDS: METOPROLOL TARTRATE 50 MG TAB PO SCH (09:14)
[2018-01-15] MEDS: PANTOPRAZOLE SOD 20 MG DELAYED RELEASE TAB PO SCH (09:14)
[2018-01-15] MEDS: SERTRALINE HCL 50 MG TAB PO SCH (09:14)
--- NOTE | 2018-01-15 14:14 | HHI.PYPN ---
Subjective Chief Complaint: Depression with suicidal ideation, alcohol misuse Remarks Met with patient, patient's , counselor Gee, and nurse Emeka, chart reviewed, patient complaint medications, discussed with nurse. Patient did receive 2 mg Ativan this morning per wa. We discussed various options for discharge planning and further care in addressing his depression and his alcohol dependency. Patient showed little insight into the severity of this, trying almost no willingness to accept responsibility for his behaviors or the consequences that he has received so far in this hospitalization. It appears there is the possibility of him being accepted at [facility] in [place] when she was inpatient dual diagnosis. Patient is refusing to go there. Stating he needs to get back to his work. We then discussed an alternative plan of him following up outpatient with Dr. rios for his mental health issues, and [facility] for outpatient alcohol treatment. This including absolute abstinence and absolute compliance with all recommendations appointments and medications. Patient paid some lip service to agreeing to the outpatient program though still with any significant insight. However considering the fact of the Ativan use this morning with the protocol I feel we need another 24 hours to assess the risks of withdrawal. Patient reluctantly accepted further stay voluntarily though is quite angry with it displacing most of his anger towards his . Continuing to show no little responsibility for his behaviors. For now continue treatment Review of Systems Except as stated in HPI: all other systems reviewed are Neg Mental Status Examination Appearance: Appropriate Consciousness: Alert Orientation: x4 Motor Activity: Normal gait Speech: Unremarkable Language: Adequate Fund of Knowledge: Adequate Attention and Concentration: Adequate Memory: Unremarkable Mood: Angry, Sad, Irritable Affect: Other (Slight increased range and intensity) Thought Process & Associations: Intact Thought Content: Appropriate Hallucination Type: None Delusion Type: None Suicidal Ideation: No (Denies today) Suicidal Plan: No (Denies) Suicidal Intention: No (Denies to the) Homicidal Ideation: No Homicidal Plan: No Homicidal Intention: No Insight: Poor Judgment: Poor Results Vitals/IOs Vital Signs Date Time Temp Pulse Resp B/P (MAP) Pulse Ox O2 Delivery O2 Flow Rate FiO2 01/15/18 05:40 97.2 67 17 157/85 (109) 95 01/12/18 11:01 Room Air Intake and Output 01/15/18 01/15/18 01/16/18 08:00 16:00 00:00 Intake Total 120 ml 240 ml Balance 120 ml 240 ml Assessment & Plan Problem List: (1) Bipolar affective disorder, current episode depressed ICD Codes: F31.30 - Bipolar disorder, current episode depressed, mild or moderate severity, unspecified (2) Alcohol use disorder ICD Codes: F10.99 - Alcohol use, unspecified with unspecified alcohol-induced disorder Status: Chronic Assessment & Plan Estimated LOS: days for now continue treatment patient continues to show little insight, taking no responsibility for his behaviors. Though we will consider discharge tomorrow if the [facility] protocol allows it and his behaviors permitted Justification for Cont. Inpt. This time patient would decompensate a place to a lower level of care Discharge Planning Probable discharge home tomorrow we will follow up psychiatrically Dr. Hale for the alcohol-related issues with Jessee Marchman act Request HC Surrog/Guard Advoc?: No Problem Qualifiers (1) Bipolar affective disorder, current episode depressed: Qualified Codes: F31.4 - Bipolar disorder, current episode depressed, severe, without psychotic features Gentry Camargo MD January 15, 2018 14:14
--- NOTE | 2018-01-15 14:55 | HHI.PR ---
Subjective Remarks Follow up for hypothyroidism, hypertension. The patient is seen resting in bed, accompanied by RN. The patient has no specific medical complaints today. Oriented x4. Denies any fever/chills, headache, chest pain, shortness of breath , or abdominal complaints. He is tolerating oral intake. Vitals reviewed and stable. Objective Vitals Vital Signs Date Time Temp Pulse Resp B/P (MAP) Pulse Ox O2 Delivery O2 Flow Rate FiO2 01/15/18 05:40 97.2 67 17 157/85 (109) 95 01/14/18 18:22 98.0 71 18 126/72 (90) 98 I/O 01/14/18 01/14/18 01/14/18 01/15/18 01/15/18 01/15/18 07:00 15:00 23:00 07:00 15:00 23:00 Intake Total 360 ml Balance 360 ml Intake Oral 360 ml Result Diagram: 01/11/18165701/11/181657 Objective Remarks GENERAL: Well-nourished, well-developed middle aged male patient in [facility]. SKIN: Warm and dry. No rash. HEENT: Normocephalic. Atraumatic. Pupils equal and round. Mucous membranes pink and moist. CARDIOVASCULAR: Regular rate and rhythm. No murmur appreciated. RESPIRATORY: No accessory muscle use. Clear to auscultation. Breath sounds equal bilaterally. GASTROINTESTINAL: Abdomen soft, non-tender, nondistended. Normoactive bowel sounds x4. MUSCULOSKELETAL: No obvious deformities. Extremities without clubbing, cyanosis , or edema. NEUROLOGICAL: Awake and alert. No obvious cranial nerve deficits. Motor grossly within normal limits. Moving all extremities spontaneously. Normal speech. Procedures None. Medications and IVs Current Medications Medications (Trade) Dose Ordered Sig/Fani Route Start Time Stop Time Status Last Admin (Romazicon Inj) 0.2 mg Q1M PRN IV PUSH 01/11/18 17:00 (Ativan) 1 mg Q4H PRN PO 01/11/18 17:00 01/14/18 16:58 (Ativan Inj) 1 mg Q4H PRN IV PUSH 01/11/18 17:00 (Ativan) 2 mg Q2H PRN PO 01/11/18 17:00 01/15/18 05:29 (Ativan Inj) 2 mg Q2H PRN IV PUSH 01/11/18 17:00 01/13/18 19:33 (Ativan Inj) 2 mg Q1H PRN IV PUSH 01/11/18 17:00 (Ativan Inj) 2 mg Q15M PRN IV PUSH 01/11/18 17:00 (Abilify) 5 mg HS PO 01/12/18 21:00 01/14/18 20:30 (Benadryl) 50 mg HS PRN PO 01/12/18 10:15 01/14/18 20:30 (Atarax) 50 mg Q6H PRN PO 01/12/18 10:15 01/14/18 20:31 (Lipitor) 20 mg HS PO 01/12/18 21:00 01/14/18 20:30 (Lopressor) 50 mg DAILY PO 01/12/18 10:15 01/15/18 09:14 (Protonix) 20 mg DAILY PO 01/13/18 09:00 01/15/18 09:14 (Synthroid) 50 mcg DAILY@0600 PO 01/14/18 06:00 01/15/18 05:29 (Zoloft) 50 mg DAILY PO 01/15/18 09:00 01/15/18 09:14 Urinary Catheter: No Vascular Central Line Catheter: No A/P Problem List: (1) Hypothyroidism ICD Code: E03.9 - Hypothyroidism, unspecified (2) Depression ICD Code: F32.9 - Major depressive disorder, single episode, unspecified Status: Chronic (3) Alcohol abuse ICD Code: F10.10 - Alcohol abuse, uncomplicated Status: Chronic Assessment and Plan 57 year old male with history of HTN, HLD, GERD, and EtOH abuse admitted to the psychiatric service for depressive symptoms and suicidal ideation. He was found to have an elevated TSH and hospitalist services consulted for further evaluation and recommendations. Hypothyroidism: TSH 8.74, may be reactive however patient symptomatic (cold intolerance, fatigue, borderline bradycardia) -No enlargement of thyroid or palpable nodules to warrant thyroid ultrasound -Free T4 and T3 WNL -Started low dose levothyroxine 50 mcg -Will need f/u TSH in 4-6 weeks as outpatient to titrate dosing, patient verbalized understanding. Depression with suicidal ideation -Continue management per psych, started on Zoloft and Abilify Alcohol abuse: Daily beer drinker -Continue CIWA protocol -thiamine/folate/MV Hypertension: chronic, fairly well controlled -Resume home metoprolol -BP and heart rate stable GERD: chronic -Continue Zantac HLD: chronic -Continue statin DVT prophylaxis-ambulation Discharge Planning The patient is medically stable and can be transferred out of med/psych. Medically clear for discharge. Recommend outpatient TSH/T4 in 4-6 weeks. Kristen Helm PA-C January 15, 2018 2:55 pm
[2018-01-15] MEDS: MULTIVITAMINS/MINERALS THERAPEUTIC TAB PO SCH (16:00)
[2018-01-15] MEDS: FOLIC ACID 1 MG TAB PO SCH (16:41)
[2018-01-15] MEDS: THIAMINE HCL 100 MG TAB PO SCH (16:41)
[2018-01-15 18:00] VITALS: BP 150/77; PULSE 56; RESP 17; TEMP 98.4; O2SAT 97
[2018-01-15] MEDS: ARIPiprazole 5 MG TAB PO SCH (21:37)
[2018-01-15] MEDS: diphenhydrAMINE HCL 50 MG CAP PO PRN (21:37)
[2018-01-15] MEDS: ATORVASTATIN 20 MG TAB PO SCH (21:38)
[2018-01-16] MEDS: LEVOTHYROXINE SODIUM 50 MCG TAB PO SCH (05:52)
[2018-01-16 06:26] VITALS: BP 146/82; PULSE 57; RESP 16; TEMP 98; O2SAT 16
[2018-01-16] MEDS: SERTRALINE HCL 50 MG TAB PO SCH (08:08)
[2018-01-16] MEDS: METOPROLOL TARTRATE 50 MG TAB PO SCH (08:08)
[2018-01-16] MEDS: THIAMINE HCL 100 MG TAB PO SCH (08:08)
[2018-01-16] MEDS: PANTOPRAZOLE SOD 20 MG DELAYED RELEASE TAB PO SCH (08:08)
[2018-01-16] MEDS: MULTIVITAMINS/MINERALS THERAPEUTIC TAB PO SCH (08:08)
[2018-01-16] MEDS: FOLIC ACID 1 MG TAB PO SCH (08:08)
--- NOTE | 2018-01-16 08:54 | HHI.PR ---
Subjective Remarks Patient seen and examined No acute event overnight Vital stable Objective Vitals Vital Signs Date Time Temp Pulse Resp B/P (MAP) Pulse Ox O2 Delivery O2 Flow Rate FiO2 01/16/18 06:26 98.0 57 16 146/82 (103) 16 01/15/18 18:00 98.4 56 17 150/77 (101) 97 I/O 01/15/18 01/15/18 01/15/18 01/16/18 01/16/18 01/16/18 07:00 15:00 23:00 07:00 15:00 23:00 Intake Total 720 ml 240 ml 600 ml Balance 720 ml 240 ml 600 ml Intake Oral 720 ml 240 ml 600 ml # Voids 1 Objective Remarks GENERAL: NAD SKIN: Warm and dry. HEAD: Normocephalic. EYES: No scleral icterus. No injection or drainage. NECK: Supple, trachea midline. No JVD or lymphadenopathy. CARDIOVASCULAR: Regular rate and rhythm without murmurs, gallops, or rubs. RESPIRATORY: Breath sounds equal bilaterally. No accessory muscle use. GASTROINTESTINAL: Abdomen soft, non-tender, nondistended. MUSCULOSKELETAL: No cyanosis, or edema. BACK: Nontender without obvious deformity. No CVA tenderness. Procedures None. A/P Problem List: (1) Hypothyroidism ICD Code: E03.9 - Hypothyroidism, unspecified (2) Depression ICD Code: F32.9 - Major depressive disorder, single episode, unspecified Status: Chronic (3) Alcohol abuse ICD Code: F10.10 - Alcohol abuse, uncomplicated Status: Chronic Assessment and Plan 57-year-old man with Hypothyroidism: TSH 8.74, may be reactive however patient symptomatic (cold intolerance, fatigue, borderline bradycardia) -No enlargement of thyroid or palpable nodules to warrant thyroid ultrasound -Free T4 and T3 WNL -Started low dose levothyroxine 50 mcg -Repeat TSH in 4-6 weeks as outpatient to titrate dosing Depression with suicidal ideation -Continue management per psych, on Zoloft and Abilify Alcohol abuse: Daily beer drinker -Continue CICO protocol -thiamine/folate/MV Hypertension: chronic, fairly well controlled -continue home metoprolol GERD: chronic -Continue Zantac HLD: chronic -Continue statin DVT prophylaxis-ambulation [facility] will sign off Aram Richard MD January 16, 2018 08:54
[2018-01-16] MEDS ORDERED: METO50TA PO (09:19)
[2018-01-16] MEDS ORDERED: LEVO.05 PO (09:19)
[2018-01-16] MEDS ORDERED: FOLI1TAB6 PO (09:19)
[2018-01-16] MEDS ORDERED: THIA100 PO (09:19)
[2018-01-16] MEDS ORDERED: ATOR20TA15 PO (09:19)
[2018-01-16] MEDS ORDERED: ZOLO50TA PO (09:19)
[2018-01-16] MEDS ORDERED: ARIP1TAB11 PO (09:19)
[2018-01-16] MEDS ORDERED: THERM PO (09:19)
--- NOTE | 2018-01-16 09:27 | HHI.DS ---
Psychiatry Discharge Summary Inpatient Psychiatric care?: Yes Advance Directive: No Reason Not Provided: Due to Patient Condition Mental Health AdvanceDirective: No Health Care Proxy: No Admission Admission Date January 12, 2018 at 10:14 Admission Diagnosis: (1) Bipolar affective disorder, current episode depressed ICD Code: F31.30 - Bipolar disorder, current episode depressed, mild or moderate severity, unspecified (2) Alcohol use disorder ICD Code: F10.99 - Alcohol use, unspecified with unspecified alcohol-induced disorder Brief History Patient is a 57-year-old white male who comes here voluntarily from his psychiatrist's office. Accompanied by his . It appears this is the patient 's first visit to a psychiatrist, while at that office he complained of increased suicidal ideation with a plan, that he had researched suicide methods online through the past week or so. Patient also is in alcohol misuse her. He has recently been drinking daily mainly beer but occasionally hard liquor. He drinks in the morning he drinks by himself, denies blackout spells acknowledges passing out, has had 2-3 detoxes most recently being a few months ago at [facility] where he was for a month. He relapsed very quickly after the discharge. He denies any legal issues related to drinking. He denies other drug use. Patient has had one brief psychiatric assessment by Dr. Quinones here about 2 years ago. Patient states his first drink was at about 10 years of age he had a period of sobriety for 2-3 years 10+ years ago. He also acknowledges having depressive symptoms on and off for a number of years he acknowledges most recent depressive episode starting about a month or 2 ago. He says he self medicates to help him sleep with the alcohol, he says his appetite is poor and his energy level is poor, he states he "does not cry",, there is increased anhedonia with a decreased sex drive, he finds his concentration and attention was poor he does not cope well with small stress, he denies voices or visions. He is vague today about continued suicidality though he denies prior suicide attempts. There is somewhat of a hopelessness with him also. He also does describe episodes that could be manic in nature with rapid pressured speech and increased energy, decreased need for sleep, poor task completion. Plus risky behaviors such as spending money does not have substance use. I have discussed this with patient's name is Gaby [phone] he agrees with the above. I did discuss medications with the patient will start the patient on Zoloft 25 mg daily and Abilify 5 mg at at bedtime. Labs have also shown marked increase in his TSH we will have a hospitalist consult will is related to possible thyroid dysfunction. We will also order the cinh protocol to address possible withdrawal symptoms. Hopeless be fairly short stay return to his community psychiatrist, individual counseling, back with his family Tobacco Use In Past 30 Days: 5 or More Cigarettes/Day Alcohol Use: 4 or More Times Per Week Hospital Course Patient's hospital course was somewhat uneventful, though there were some behavior outbursts that may have been related to withdrawal symptoms and agitated depression. And just anger at being hospitalized. He had multiple discussions related to the coexisting problems of his depression which may have been a component of a larger bipolar disorder, and his significant alcohol abuse history. Though his regular communication with patient's was supportive of. There was a family meeting is mentioned in the prior progress note yesterday where [facility] discharge plans were discussed. Patient refused to consider an inpatient rehab program for 30 days. At this time patient no longer meets criteria for inpatient psychiatric hospitalization. He denies suicidality or homicidality voices or visions. He is not needed any Ativan per the ciwa protocol for almost 24 hours. Thus will be discharged today with psychotropic medications of the Abilify on the Zoloft. He will follow-up with his private psychiatrist in the community. He will also follow up with [facility] for voluntary outpatient substance abuse assessment and treatment and rehab treatment. It was emphasized to him his need for absolute abstinence , and also to acknowledge the intensity of his co-occurring issues of mood disorder and alcohol abuse. Patient showed some slight insight into this. In any event patient will be discharged today with follow-up as mentioned above Results Blood Pressure 146 / 82 Vital Signs Date Time Temp Pulse Resp B/P (MAP) Pulse Ox O2 Delivery O2 Flow Rate FiO2 01/16/18 06:26 98.0 57 16 146/82 (103) 16 01/12/18 11:01 Room Air Urine toxicology negative blood alcohol level negative Summary of Procedures None done Pending results at discharge: No Medications # of Antipsychotic meds at D/C: 1 Approp Antipsych med options 1 - Minimum of three failed multiple trials of monotherapy. 2 - Documented plan to taper to monotherapy due to previous use of multiple meds OR cross-taper in progress at D/C. 3 - Documentation of augmentation of Clozapine. 4 - Justification other than those listed in allowable values 1-3, document here : Discharge Discharge Date: January 16, 2018 Discharge Diagnosis: (1) Bipolar affective disorder, current episode depressed Diagnosis: Principal ICD Code: F31.30 - Bipolar disorder, current episode depressed, mild or moderate severity, unspecified (2) Alcohol use disorder Diagnosis: Secondary ICD Code: F10.99 - Alcohol use, unspecified with unspecified alcohol-induced disorder Status: Chronic Pt Condition on Discharge: Stable Discharge Disposition: Discharge Home Discharge Instructions Diet Instructions: As Tolerated, No Restrictions Activities you can perform: Regular-No Restrictions Scheduled Appointment: Private Psychiatrist (Dr. Hale, also refer to [facility] for substance abuse assessment and treatment, absolute abstinence, referred to AA) Discharge Time > 30 minutes Mental Status Examination Appearance: Appropriate Consciousness: Alert Orientation: x4 Motor Activity: Normal gait Speech: Unremarkable Language: Adequate Fund of Knowledge: Adequate Attention and Concentration: Adequate Memory: Unremarkable Mood: Angry, Sad, Irritable Affect: Other (Slight increased range and intensity) Thought Process & Associations: Intact Thought Content: Appropriate Hallucination Type: None Delusion Type: None Suicidal Ideation: No (Denies today) Suicidal Plan: No (Denies) Suicidal Intention: No (Denies to the) Homicidal Ideation: No Homicidal Plan: No Homicidal Intention: No Insight: Poor Judgment: Poor Discharge/Advance Care Plan Health Problems: (1) Bipolar affective disorder, current episode depressed (2) Alcohol use disorder Goals to promote your health * To prevent worsening of your condition and complications * To maintain your health at the optimal level Directions to meet your goals Take your medications as prescribed Follow your dietary instruction Follow activity as directed Keep your appointments as scheduled Take your immunizations and boosters as scheduled If your symptoms worsen call your PCP, if no PCP go to Urgent Care Center or Emergency Room For 24/ questions related to your inpatient stay or results of tests pending at discharge, please contact Dr. Gentry Camargo at Smoking is Dangerous to Your Health. Avoid second hand smoking Problem Qualifiers (1) Bipolar affective disorder, current episode depressed: Qualified Codes: F31.4 - Bipolar disorder, current episode depressed, severe, without psychotic features Gentry Camargo MD January 16, 2018 09:27
== END 2018-01-16 14:40 | disposition home or self-care (01) | DRG 885 ==
LOC: NEPD 15:54 → NEDA 01-12 10:14 → H260 01-12 11:25 → H270 01-13 18:04 → H4EA 01-14 17:49
PROVIDERS: ADMIT Psychiatry & Neurology Psychiatry; ATTEND Psychiatry & Neurology Psychiatry
DX: F31.4 Bipolar disorder, current episode depressed, severe, without psychotic features (principal); R45.851 Suicidal ideations; I10 Essential (primary) hypertension; M19.90 Unspecified osteoarthritis, unspecified site; F41.9 Anxiety disorder, unspecified; E78.5 Hyperlipidemia, unspecified; K21.9 Gastro-esophageal reflux disease without esophagitis; F17.210 Nicotine dependence, cigarettes, uncomplicated; E03.9 Hypothyroidism, unspecified; F10.20 Alcohol dependence, uncomplicated
CPT/HCPCS: 80053; 80307; 84439; 84443; 84481; 85025; 99285; J1630; J2060; Q0163